=== PATIENT | male | born 1970 | race Caucasian/White ===

== ENCOUNTER 2016-09-27 08:43 | Inpatient (IN) | payer OTHER ==
[2016-09-27] MEDS ORDERED: SENNOSIDES 1 TAB PO PRN (14:31)
--- NOTE | 2016-09-27 15:46 | BCON ---
[f rep st] BEHAVIORAL HEALTH CONSULTATION INTERNAL MEDICINE CONSULTATION DATE OF CONSULTATION: 09/27/2016 REFERRING PHYSICIAN: Fritz Quinonez MD REASON FOR CONSULTATION: Medical clearance for inpatient behavioral health stay. HISTORY OF PRESENT ILLNESS: The patient is a poor historian but from reviewing his chart and talking with staff he was referred for inpatient electroconvulsive therapy. He had been getting outpatient elective convulsive therapy and apparently had had a worsening of his depression so has come inpatient for closer supervision while he continues electroconvulsive therapy. Currently, he complains of back pain. He has chronic back pain due to a weight lifting accident. He has had back surgery but continues to have pain. He is currently without other acute complaints. PAST MEDICAL HISTORY: 1. Back pain. 2. Obstructive sleep apnea. 3. History of traumatic brain injury. 4. Hypothyroidism. 5. Headaches. PAST SURGICAL HISTORY: Lumbar fusion approximately 10-11 years ago. MEDICATIONS: Prior to admission. 1. Quetiapine 600 mg p.o. at bedtime. 2. Prazosin 10 mg p.o. at bedtime. 3. Paroxetine 40 mg p.o. daily. 4. [place]-3 fatty acids 2000 mg p.o. twice daily. 5. Multivitamin 1 each p.o. daily. 6. Lurasidone 80 mg p.o. at bedtime. 7. Levothyroxine 112 mcg daily except not on Sundays. ALLERGIES: There are no known drug allergies. SOCIAL HISTORY: He is . He lives with his . 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 He is currently on disability. He has no children. He is a nonsmoker. He has a history of alcohol abuse but has been sober for 20 years other than recent binge drinking episodes prior to his hospitalization last March. FAMILY HISTORY: Noncontributory. REVIEW OF SYSTEMS: He reports his back pain is 5/10. He says his goal for pain control would be 2 to 3 over 10. He reports he was taking an opiate medication, but he cannot recall the name of it. He reports memory loss due to electroconvulsive therapy. He denies fevers, chills, cough, dyspnea, nausea, vomiting, constipation or diarrhea. He reports he has a poor diet and is not sure whether he has gained weight, but chart review shows a 6 kg weight gain since March, and he has some constipation related to his pain medications, and otherwise a 10-point review of systems is negative. PHYSICAL EXAM: VITAL SIGNS: Blood pressure is 137/96, heart rate is 103, respiratory rate is 14, oxygen saturation is 97% on room air. His weight is 103.4 kg for a body mass index of 29. GENERAL: This is an overweight man, cooperative, well groomed and in no acute distress. HEENT. Extraocular movements are intact. Pupils are equal, round, and reactive to light. Mucous membranes are moist. Dentition is in good condition. NECK: Supple. HEART: There is a regular rate and rhythm. He is tachycardic. There are no murmurs, rubs or gallops. LUNGS: Clear to auscultation bilaterally. ABDOMEN: Soft, nontender, nondistended with normoactive bowel sounds. EXTREMITIES: There is no cyanosis, clubbing, or edema. NEUROLOGIC: He is alert and oriented x3. He has slow processing and recent memory loss and is a poor historian. Cranial nerves 2-12 are grossly intact. There is no focal weakness. Sensation is intact to light touch, and gait is within normal limits. LABORATORY STUDIES: There are no laboratory studies available in the chart currently, but on chart review, a lipid panel was drawn on 04/25/2016 which showed dyslipidemia with cholesterol of 234, triglycerides also elevated at 179 , LDL was high at 152, HDL was normal at 47. His TSH was normal on 04/22/2016. His vitamin D level was low at 22.2 on 04/22/2016, and otherwise, renal function, liver function and electrolytes were within normal limits. ASSESSMENT/RECOMMENDATIONS: 1. Mental health issues. Pending further evaluation and management per Psychiatry and the mental health team. 2. Chronic back pain. He reports he was treated with an opiate. I have ordered hydrocodone/acetaminophen 5/325, 1-2 tablets q.4 hours p.r.n. Advise also ordering ibuprofen and Tylenol in an attempt to spare opiates. 3. Dyslipidemia. Possibly complicated by weight gain if the weights in the chart are accurate. Consider avoiding psychiatric medications which could exacerbate weight gain; however, psychosocial stabilization is priority at this time. Advised exercise. He reports that he has been unable to exercise due to his back pain and recently sold his weights, but he was advised that there are other activities in which he could engage which would benefit his lipid panel and his weight. 4. Vitamin D deficiency. I have ordered cholecalciferol 2000 units daily. 5. Hypothyroidism has been well controlled, and there is no indication at present to repeat a TSH or consider changing dose. 6. Obstructive sleep apnea. On his prior to admission, it was noted that he had recently been tested and been prescribed CPAP. It would be in his best interest to bring the CPAP machine to the unit and use it at night. 7. Elevated blood pressure on a single reading. Advise monitoring blood pressure. If it is persistently elevated, he would benefit from antihypertensive medications. 8. Tachycardia of unclear etiology. Advise monitoring. If he is persistently tachycardic, advise an EKG, and advise attention also to hydration state. It could be that he has some dehydration. Additionally, anxiety could be driving an elevated blood pressure and heart rate. I see no contraindications to the patient's continued stay on the inpatient behavioral health unit, or to any psychiatric medications or procedures, assuming that he does not continue to have an abnormally fast heart rate in the preparation for electroconvulsive therapy. Thank you very much for including me in the care of this patient and please do not hesitate to contact me or the hospitalist service should there be need for further medical evaluation. /[id number]/MODL MTDD
[2016-09-27] MEDS ORDERED: ACETAMINOPHEN 325 MG TAB PO PRN (17:11)
[2016-09-27] MEDS ORDERED: MAGNESIUM HYDROXIDE 30 ML UDCUP PO PRN (17:11)
[2016-09-27] MEDS ORDERED: MAG HYDROX/AL HYDROX/SIMETH 30 ML UDCUP PO PRN (17:11)
[2016-09-27] MEDS ORDERED: DIAZEPAM 5 MG TAB PO PRN (17:17)
[2016-09-27] MEDS: QUEtiapine FUMARATE 200 MG TAB PO SCH (19:20)
[2016-09-27] MEDS: PRAZOSIN HCL 5 MG CAP PO SCH (19:21)
[2016-09-27] MEDS: OXYCODONE/APAP 5/325 TAB PO PRN (19:24)
[2016-09-27] MEDS ORDERED: LURASIDONE HCL 80 MG TAB PO SCH (21:00)
[2016-09-28] MEDS ORDERED: LEVOTHYROXINE 112 MCG TAB PO SCH (06:00)
[2016-09-28] MEDS: OMEGA-3 FATTY ACIDS 1,000 MG CAP PO SCH (10:26)
[2016-09-28] MEDS: CHOLECALCIFEROL VIT D3 2,000 UNITS TAB/CAP PO SCH (10:29)
[2016-09-28] MEDS: MULTIVITAMINS 1 EACH TAB PO SCH (10:29)
[2016-09-28] MEDS: PARoxetine HCL 20 MG TAB PO SCH (10:29)
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
[2016-09-28] MEDS: QUEtiapine FUMARATE 200 MG TAB PO SCH (20:38)
[2016-09-28] MEDS: LURASIDONE HCL 80 MG TAB PO SCH (20:39)
[2016-09-28] MEDS: PRAZOSIN HCL 5 MG CAP PO SCH (20:39)
[2016-09-28] MEDS: LURASIDONE HCL 20 MG TAB PO SCH (20:39)
[2016-09-29] MEDS ORDERED: ONDANSETRON DISINTEGRATING 4 MG TAB PO ONE (05:00)
[2016-09-29] MEDS ORDERED: CITRIC ACID/SODIUM CITRATE 30 ML UDCUP PO ONE (05:00)
[2016-09-29] MEDS ORDERED: NS 1,000 ML IV ONE (05:00)
[2016-09-29] MEDS ORDERED: LIDOCAINE 2% 5 ML SDV ID ONE (05:00)
[2016-09-29] MEDS: CHOLECALCIFEROL VIT D3 2,000 UNITS TAB/CAP PO SCH (09:45)
[2016-09-29] MEDS: PARoxetine HCL 20 MG TAB PO SCH (09:45)
[2016-09-29] MEDS: MULTIVITAMINS 1 EACH TAB PO SCH (09:45)
[2016-09-29] MEDS: LEVOTHYROXINE 112 MCG TAB PO SCH (09:45)
[2016-09-29] MEDS: OMEGA-3 FATTY ACIDS 1,000 MG CAP PO SCH (09:45)
[2016-09-29 11:29] VITALS: TEMP 97.6
[2016-09-29] MEDS: HYDROCODONE/APAP 5/325 TAB PO PRN ×2 (14:57→20:05)
[2016-09-29] MEDS: OXYCODONE/APAP 5/325 TAB PO PRN (14:57)
[2016-09-29] MEDS: LURASIDONE HCL 20 MG TAB PO SCH (19:57)
[2016-09-29] MEDS: PRAZOSIN HCL 5 MG CAP PO SCH (19:57)
[2016-09-29] MEDS: QUEtiapine FUMARATE 200 MG TAB PO SCH (19:57)
[2016-09-29] MEDS: LURASIDONE HCL 80 MG TAB PO SCH (19:58)
[2016-09-30] MEDS: CHOLECALCIFEROL VIT D3 2,000 UNITS TAB/CAP PO SCH (08:35)
[2016-09-30] MEDS: OMEGA-3 FATTY ACIDS 1,000 MG CAP PO SCH (08:35)
[2016-09-30] MEDS: PARoxetine HCL 20 MG TAB PO SCH (08:35)
[2016-09-30] MEDS: MULTIVITAMINS 1 EACH TAB PO SCH (08:35)
[2016-09-30] MEDS: HYDROCODONE/APAP 5/325 TAB PO PRN ×2 (09:09→19:45)
[2016-09-30] MEDS: LORazepam 0.5 MG TAB PO PRN ×2 (09:09→16:21)
[2016-09-30] MEDS: LEVOTHYROXINE 112 MCG TAB PO SCH (10:00)
[2016-09-30] MEDS: OXYCODONE/APAP 5/325 TAB PO PRN (16:22)
--- NOTE | 2016-09-30 19:38 | SOAPPROG ---
SOAP Progress Note Assessment/Plan: Assessment: 46yo with BMD and treatment resistant depr also PTSD, chronic back pain, hx of TBI, Hypothyroidism, and ASTRID on CPAP, receiving ECT as outpt. Admitted s/p EtOH binge after prolonged sobriety with resulting +SI and ?OD 09/30/16 11:47 per staff, has been increasingly visible in milieu. states he went to one group this AM. feels sleepy, and was awakened at 2pm from deep sleep in darkened room. reports compliant with CPAP at night. 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 pt reports no recollection of SI and no recall whether attempted to harm himself in the context of acute intoxication. Has been sober x 5-10 yrs he reports, except for 2-3 acute binge drinking episodes. 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 If could change anything? "I would like to get back to work" cooperative, nml speech vol/rate but decr spontaneity, flat/blunted affect, mood depressed, thoughts without delusions or psychosis, some content poverty and vague, denied SI Plan: cont current meds no s/e to incr Latuda from 80mg to 100mg hs, but reports also noting no benefits so far Objective: Vital Signs Temp Pulse Resp BP Pulse Ox 36.4 C 89 15 90/50 L 91 L 09/29/16 09:45 09/29/16 09:45 09/29/16 09:45 09/29/16 09:45 09/29/16 09:45 Medications Generic Name Dose Route Start Last Admin Trade Name Freq PRN Reason Stop Dose Admin Cholecalciferol 2,000 units 09/28/16 09:00 10/01/16 08:29 Vitamin D PO 03/27/17 08:59 2,000 units DAILY VIDHYA Quetiapine Fumarate 600 mg 09/27/16 21:00 09/30/16 20:29 Seroquel PO 03/26/17 20:59 600 mg HS VIDHYA Diazepam 5 - 10 mg 09/27/16 17:17 Valium PO 03/26/17 17:16 HS PRN Spasms Levothyroxine Sodium 112 mcg 09/29/16 10:00 09/30/16 10:00 Synthroid PO 03/28/17 09:59 112 mcg DAILY@1000 VIDHYA Hydrocodone Bitart/Acetaminophen 1 - 2 tab 09/27/16 14:30 10/01/16 08:30 Bradshaw 5/325 PO 10/07/16 14:29 2 tab Q4HRS PRN Pain, Moderate Able to Take PO Lorazepam 0.5 - 1 mg 09/27/16 17:11 09/30/16 16:21 Ativan PO 03/26/17 17:10 1 mg Q6HRS PRN Anxiety, Able to Take PO Lurasidone HCl 80 mg 09/28/16 17:59 09/30/16 20:29 Latuda PO 03/26/17 20:59 80 mg HS VIDHYA Lurasidone HCl 20 mg 09/28/16 21:00 09/30/16 20:29 Latuda PO 03/27/17 20:59 20 mg HS VIDHYA Multivitamins 1 each 09/28/16 09:00 10/01/16 08:29 Tab-A-Andrew PO 03/27/17 08:59 1 each DAILY VIDHYA Czlrs-2-Cdap Ethyl Esters 1,000 mg 09/28/16 09:00 10/01/16 08:28 Fish Oil PO 03/27/17 08:59 1,000 mg DAILY VIDHYA Oxycodone/Acetaminophen 1 tab 09/27/16 17:17 09/30/16 16:22 Percocet 5/325 PO 10/07/16 17:16 1 tab Q8 PRN Pain, Severe Able to Take PO Paroxetine HCl 40 mg 09/28/16 09:00 10/01/16 08:28 Paxil PO 03/27/17 08:59 40 mg DAILY VIDHYA Prazosin HCl 10 mg 09/27/16 21:00 09/30/16 20:29 Minipress PO 03/26/17 20:59 10 mg HS VIDHYA - Time Spent With Patient Time Spent With Patient: 35min - Pending Discharge Pending Discharge Within 24 Hours: No Pending Discharge Within 48 Hours: No ICD10 Worksheet Patient Problems: Problems Problem Status Onset Bipolar 1 disorder, depressed, severe Acute
[2016-09-30] MEDS: PRAZOSIN HCL 5 MG CAP PO SCH (20:29)
[2016-09-30] MEDS: LURASIDONE HCL 20 MG TAB PO SCH (20:29)
[2016-09-30] MEDS: LURASIDONE HCL 80 MG TAB PO SCH (20:29)
[2016-09-30] MEDS: QUEtiapine FUMARATE 200 MG TAB PO SCH (20:29)
[2016-10-01] MEDS: PARoxetine HCL 20 MG TAB PO SCH (08:28)
[2016-10-01] MEDS: OMEGA-3 FATTY ACIDS 1,000 MG CAP PO SCH (08:28)
[2016-10-01] MEDS: MULTIVITAMINS 1 EACH TAB PO SCH (08:29)
[2016-10-01] MEDS: CHOLECALCIFEROL VIT D3 2,000 UNITS TAB/CAP PO SCH (08:29)
[2016-10-01] MEDS: HYDROCODONE/APAP 5/325 TAB PO PRN (08:30)
[2016-10-01] MEDS: LEVOTHYROXINE 112 MCG TAB PO SCH (10:00)
[2016-10-01] MEDS: OXYCODONE/APAP 5/325 TAB PO PRN (18:35)
[2016-10-01] MEDS: LURASIDONE HCL 80 MG TAB PO SCH (20:17)
[2016-10-01] MEDS: PRAZOSIN HCL 5 MG CAP PO SCH (20:17)
[2016-10-01] MEDS: QUEtiapine FUMARATE 200 MG TAB PO SCH (20:17)
[2016-10-01] MEDS: LURASIDONE HCL 20 MG TAB PO SCH (20:17)
--- NOTE | 2016-10-02 02:32 | SOAPPROG ---
SOAP Progress Note Assessment/Plan: Assessment: 46yo with BMD and treatment resistant depr also PTSD, chronic back pain, hx of TBI, Hypothyroidism, and ASTRID on CPAP, receiving ECT as outpt. Admitted s/p EtOH binge after prolonged sobriety with resulting +SI and ?OD 09/30/16 11:47 per staff, has been increasingly visible in milieu. states he went to one group this AM. feels sleepy, and was awakened at 2pm from deep sleep in darkened room. reports compliant with CPAP at night. 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 pt reports no recollection of SI and no recall whether attempted to harm himself in the context of acute intoxication. Has been sober x 5-10 yrs he reports, except for 2-3 acute binge drinking episodes. 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 If could change anything? "I would like to get back to work" cooperative, nml speech vol/rate but decr spontaneity, flat/blunted affect, mood depressed, thoughts without delusions or psychosis, some content poverty and vague, denied SI Plan: cont current meds no s/e to incr Latuda from 80mg to 100mg hs, but reports also noting no benefits so far 10/01/16 14:11 slept 9hr. staff report pt seems more depressed. noted VS with pOx 91% this AM took 2 [place] this AM for pain, and 1 Percoset at 4pm last pm. per MD admit note, gained 6kg since 03/2016. MSE: noted reading from Bible in bed, cooperative,casually dressed, balding with unshaved graying cohen, nml speech rate/vol which seems a bit more spontaneous today, mood "doing alright", affect continues very restricted/ flattened, no evid for thought d/o, denied psychotic sxs, denied SI. "I wore my CPAP last night". c/o chronic cognitive difficulties since TBI. PLAN -Reports no side effects from incr Latuda. but also no benefit noted yet. cont to monitor -Reviewed other meds briefly, thinks on Paxil x 10yrs. Taking in AM. Since Paxil is generally sedating, pt agreed to try change to HS. Also this SSRI could have adverse effects on cognition w/its anticholinergic effects, could at some point consider slow taper and replace. ?Lamictal -hypoxia not helpful for depr/cognition, cont CPAP -otherwise cont w/current mgmt Objective: Vital Signs Temp Pulse Resp BP Pulse Ox 36.4 C 89 15 90/50 L 91 L 09/29/16 09:45 09/29/16 09:45 09/29/16 09:45 09/29/16 09:45 09/29/16 09:45 - Time Spent With Patient Time Spent With Patient: 25min - Pending Discharge Pending Discharge Within 24 Hours: No Pending Discharge Within 48 Hours: No ICD10 Worksheet Patient Problems: Problems Problem Status Onset Bipolar 1 disorder, depressed, severe Acute
[2016-10-02] MEDS ORDERED: ONDANSETRON DISINTEGRATING 4 MG TAB PO ONE (05:00)
[2016-10-02] MEDS ORDERED: CITRIC ACID/SODIUM CITRATE 30 ML UDCUP PO ONE (05:00)
[2016-10-02] MEDS ORDERED: LIDOCAINE 2% 5 ML SDV ID ONE (05:00)
[2016-10-02] MEDS ORDERED: NS 1,000 ML IV ONE (05:00)
[2016-10-02] MEDS: LEVOTHYROXINE 112 MCG TAB PO SCH (09:41)
[2016-10-02] MEDS: CHOLECALCIFEROL VIT D3 2,000 UNITS TAB/CAP PO SCH (09:41)
[2016-10-02] MEDS: MULTIVITAMINS 1 EACH TAB PO SCH (09:41)
[2016-10-02] MEDS: OMEGA-3 FATTY ACIDS 1,000 MG CAP PO SCH (09:41)
[2016-10-02 11:13] VITALS: BP 119/67; PULSE 83; RESP 14; O2SAT 88
[2016-10-02] MEDS ORDERED: PARoxetine HCL 20 MG TAB PO SCH (21:00)
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
== END 2016-10-02 16:10 | disposition home or self-care (01) | DRG 885 ==
LOC: BBEH 12:35
PROVIDERS: ADMIT Psychiatry & Neurology Psychiatry; ATTEND Psychiatry & Neurology Psychiatry
PROC: GZB2ZZZ Electroconvulsive Therapy, Bilateral-Single Seizure (ICD-10-PCS; principal; 2016-09-29)
DX: F31.4 Bipolar disorder, current episode depressed, severe, without psychotic features (principal); F43.12 Post-traumatic stress disorder, chronic; F10.21 Alcohol dependence, in remission; M54.5 Low back pain; E78.5 Hyperlipidemia, unspecified; E03.9 Hypothyroidism, unspecified; E55.9 Vitamin D deficiency, unspecified; G47.33 Obstructive sleep apnea (adult) (pediatric); Z62.819 Personal history of unspecified abuse in childhood; Z87.820 Personal history of traumatic brain injury

== ENCOUNTER 2017-11-19 13:21 | Inpatient (IN) | payer OTHER ==
--- NOTE | 2017-11-19 15:13 | CPEKG ---
Heart Rate: 101 RR Interval: 594 P-R Interval: 192 QRSD Interval: 92 QT Interval: 336 QTC Interval: 436 P [place]: 36 QRS [place]: -74 T Wave [place]: 29 EKG Severity - ABNORMAL ECG - EKG Impression: SINUS TACHYCARDIA EKG Impression: LEFT ANTERIOR FASCICULAR BLOCK Electronically Signed By: Christine Hernandez 20-Nov-2017 00:43:48
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
[2017-11-19 15:30] LABS: PLATELET COUNT 231 10^3/uL (150-400)
[2017-11-19] MEDS ORDERED: NS 1,000 ML IV ONE (15:39)
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
--- NOTE | 2017-11-19 20:04 | ASMTTCLDSP ---
TLC Discharge Disposition Disposition: Answers: Admit Discharge Concerns/Recommendations: Notes: In consultation with [facility] ED physician, Christine Hernandez MD, and on-call psychiatrist, Fritz Quinonez MD, both concurred that pt appears to meet 27-65 criteria requiring psychiatric hospitalization as Pt appears to be an imminent risk of harm to self/others due to a mental illness condition. Pt was given the 3N prohibited belongings list while in the ED. For inpatient Fritz Quinonez MD admission, the following psychiatrist agreed to accept patient for admission to [facility] ([facility]): Date and time M1 hold 11/19/2017 08:00 PM vacated (time format is hh:mm): Hold initiated by: Answers: Other Notes: Pt is Voluntary Date Signed: 11/19/2017 08:03 PM Electronically Signed By:Ashlee Sweeney
[2017-11-19] MEDS ORDERED: MAG HYDROX/AL HYDROX/SIMETH 30 ML UDCUP PO PRN (21:51)
[2017-11-19] MEDS ORDERED: MAGNESIUM HYDROXIDE 30 ML UDCUP PO PRN (21:51)
[2017-11-19] MEDS: ACETAMINOPHEN 325 MG TAB PO PRN (22:08)
[2017-11-19] MEDS: QUEtiapine FUMARATE 200 MG TAB PO SCH (22:24)
[2017-11-20] MEDS: PARoxetine HCL 20 MG TAB PO SCH (09:22)
[2017-11-20] MEDS: SENNOSIDES 1 TAB PO SCH ×2 (09:22→21:03)
[2017-11-20] MEDS: OMEGA-3 FATTY ACIDS 1,000 MG CAP PO SCH ×2 (09:22→21:03)
--- NOTE | 2017-11-20 11:20 | ASMTBHMTP ---
Master Treatment Plan Master Treatment Plan Answers: Depressed Mood with for: Suicidal Ideation Date: 11/20/2017 Diagnosis on Admission: Major Depressive Disorder Expected length of stay: 3-5 days Reason for admission: Notes: Client is a 47 yoa male brought to ED by at the referral of his psychiatrist for inpatient admission due to decompensation. Pt's states "he has had difficulty getting back on track with his medication: and attributes many of his recent symptoms to starting and then increasing his Depakote 2 weeks ago. " Pt stated he has recently stopped taking the Depakote. Patient's stated presenting problems: Notes: because I am depressed Patient's goals for treatment: Notes: to fix things, make my life better Patient's strengths: Notes: easy to get along with Identify supports outside of hospital: Notes: and her parents. Discharge criteria: Notes: Suicidal Ideation will resolve and patient will have a plan to safely manage recurrent suicidal ideation. Initial disposition plan/considerations: Notes: return home Master Treatment Plan Required Signatures Psychiatrist signature: Answers: Fritz Quinonez MD: RN on-shift signature: Answers: RN: Patient signature: Answers: Patient: Date Signed: 11/20/2017 11:19 AM Electronically Signed By:Cuate Ocampo
[2017-11-20] MEDS: LORazepam 0.5 MG TAB PO PRN ×2 (12:51→18:38)
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
--- NOTE | 2017-11-20 18:38 | PDMN ---
Medical Necessity Medical necessity: Pt meets INPT criteria per MD and [facility] [id number] (Bipolar I disorder, most recent episode depressed, severe, with psychosis; PTSD, alcohol use disorder, cognitive disruption; ECT planned).
--- NOTE | 2017-11-20 18:56 | PDHOSCONS ---
History and Physical - Chief Complaint Acute cognitive impairment - History of Present Illness Primary care psychiatrist: Dr. Fritz Quinonez HPI: 47-year-old male presenting with acute cognitive impairment characterized as inability to put together words and feelings in a meaningful way and express himself. He reports associated suicidal ideation, paranoia, delusions, feelings of mistrust towards others, including his . The patient denies any active plan but he is not very forthcoming with information. The onset of symptoms approximately 2 weeks ago and duration has been persistent worsening thereafter. The patient voluntarily presented on 11/19 with his for inpatient Behavioral Health admission. History Information - Allergies/Home Medication List Allergies/Adverse Reactions: disulfiram Allergy (Unknown, Unverified 11/19/17 21:58) divalproex sodium [From Depakote] Allergy (Unknown, Unverified 11/19/17 21:52) lamotrigine [From Lamictal] Allergy (Unknown, Unverified 11/19/17 21:58) lurasidone [From Latuda] Allergy (Unknown, Unverified 11/19/17 21:58) sertraline [From Zoloft] Allergy (Unknown, Unverified 11/19/17 21:58) Other-Enter Comments valbenazine [From Ingrezza] Allergy (Verified 07/06/17 14:37) Anxiety Home Medications: PRAZOSIN HCL 10 mg PO HS 04/21/16 [Last Taken 09/24/16] [place]-3S/Dha/Epa/Fish Oil [Fish Oil 1,200 mg Softgel] 1 cap PO BID 06/01/17 [ Last Taken Unknown] Sennosides [Senokot] 1 tab PO BID 06/01/17 [Last Taken Unknown] Multivitamins [Multivitamin (*)] 2 each PO DAILY 06/25/17 [Last Taken Unknown] PARoxetine HCL [Paxil 20mg (*)] 40 mg PO DAILY 06/25/17 [Last Taken Unknown] Quetiapine Fumarate [Seroquel] 800 mg PO HS 06/25/17 [Last Taken Unknown] Cholecalciferol Vit D3 [Vitamin D3 (*)] 2,000 units PO HS 07/09/17 [Last Taken Unknown] Herbals/Supplements -Info Only 1 ea PO DAILY 11/19/17 [Last Taken Unknown] Levothyroxine [Synthroid 112 mcg (*)] 112 mcg PO HS 11/19/17 [Last Taken Unknown ] I have personally reviewed and updated: family history, medical history, social history, surgical history - Past Medical History Additional medical history: Bipolar disease type 1 with ECT for depressive episodes. PTSD. Traumatic brain injury with chronic headaches. Hypothyroidism. Obstructive sleep apnea with CPAP. Chronic lower back pain - Surgical History Additional surgical history: Lumbar fusion - Family History Additional family history: No family history of coronary artery disease or recent sick contacts - Social History Smoking Status: Never smoked Alcohol Use: Other (Occasional binges and recent relapse, most recent alcohol consumption was 11/16 3:00 a.m.) Drug Use: None Additional social history: Currently on disability Review of Systems Review of Systems: ROS: 10pt was reviewed & negative except for what was stated in HPI & below Neurological: Reports: other (Cognitive impairment, delusions, paranoia, suicidal ideation) Physical Exam Physical Exam: Temp Pulse Resp BP Pulse Ox 36.4 C 89 14 121/82 H 98 11/20/17 06:00 11/20/17 06:00 11/20/17 06:00 11/20/17 06:00 11/20/17 06:00 Constitutional: no apparent distress, appears nourished, not in pain Eyes: PERRL, anicteric sclera, EOMI Ears, Nose, Mouth, Throat: moist mucous membranes, hearing normal, ears appear normal, no oral mucosal ulcers Cardiovascular: regular rate and rhythym, no murmur, rub, or gallop, No edema Respiratory: no respiratory distress, no rales or rhonchi, clear to auscultation Gastrointestinal: normoactive bowel sounds, soft, non-tender abdomen, no palpable masses Neurologic: AAOx3, No weakness (Motor strength 5/5 bilateral upper and lower extremities), No facial droop Psychiatric: not anxious, flat affect, poor memory, other (The patient is very withdrawn appearing, he answers in 1-2 word responses, he is unable to provide much history), No agitated Lab Data & Imaging Review 11/19/17 15:11 11/19/17 15:11 WBC 7.09 10^3/uL (3.80-9.50) 11/19/17 15:11 RBC 5.03 10^6/uL (4.40-6.38) 11/19/17 15:11 Hgb 16.3 g/dL (13.7-17.5) 11/19/17 15:11 Hct 45.3 % (40.0-51.0) 11/19/17 15:11 MCV 90.1 fL (81.5-99.8) 11/19/17 15:11 MCH 32.4 pg (27.9-34.1) 11/19/17 15:11 MCHC 36.0 g/dL (32.4-36.7) 11/19/17 15:11 RDW 13.9 % (11.5-15.2) 11/19/17 15:11 Plt Count 231 10^3/uL (150-400) 11/19/17 15:11 MPV 9.7 fL (8.7-11.7) 11/19/17 15:11 Neut % (Auto) 57.3 % (39.3-74.2) 11/19/17 15:11 Lymph % (Auto) 22.4 % (15.0-45.0) 11/19/17 15:11 [place] % (Auto) 16.2 % (4.5-13.0) H 11/19/17 15:11 Eos % (Auto) 2.1 % (0.6-7.6) 11/19/17 15:11 Baso % (Auto) 0.7 % (0.3-1.7) 11/19/17 15:11 Nucleat RBC Rel Count 0.0 % (0.0-0.2) 11/19/17 15:11 Absolute Neuts (auto) 4.06 10^3/uL (1.70-6.50) 11/19/17 15:11 Absolute Lymphs (auto) 1.59 10^3/uL (1.00-3.00) 11/19/17 15:11 Absolute Monos (auto) 1.15 10^3/uL (0.30-0.80) H 11/19/17 15:11 Absolute Eos (auto) 0.15 10^3/uL (0.03-0.40) 11/19/17 15:11 Absolute Basos (auto) 0.05 10^3/uL (0.02-0.10) 11/19/17 15:11 Absolute Nucleated RBC 0.00 10^3/uL (0-0.01) 11/19/17 15:11 Immature Gran % 1.3 % (0.0-1.1) H 11/19/17 15:11 Immature Gran # 0.09 10^3/uL (0.00-0.10) 11/19/17 15:11 Sodium 139 mEq/L (135-145) 11/19/17 15:11 Potassium 4.1 mEq/L (3.3-5.0) 11/19/17 15:11 Chloride 107 mEq/L (97-110) 11/19/17 15:11 Carbon Dioxide 23 mEq/l (22-31) 11/19/17 15:11 Anion Gap 9 mEq/L (8-16) 11/19/17 15:11 BUN 19 mg/dL (7-23) 11/19/17 15:11 Creatinine 0.9 mg/dL (0.7-1.3) 11/19/17 15:11 Estimated GFR > 60 11/19/17 15:11 Glucose 110 mg/dL (70-100) H 11/19/17 15:11 Calcium 9.1 mg/dL (8.5-10.4) 11/19/17 15:11 Total Bilirubin 0.4 mg/dL (0.1-1.4) 11/19/17 15:11 Conjugated Bilirubin 0.3 mg/dL (0.0-0.5) 11/19/17 15:11 Unconjugated Bilirubin 0.1 mg/dL (0.0-1.1) 11/19/17 15:11 AST 28 IU/L (17-59) 11/19/17 15:11 ALT 25 IU/L (21-72) 11/19/17 15:11 Alkaline Phosphatase 59 IU/L (38-126) 11/19/17 15:11 Total Protein 6.6 g/dL (6.3-8.2) 11/19/17 15:11 Albumin 3.8 g/dL (3.5-5.0) 11/19/17 15:11 Lipase 117 IU/L (23-300) 11/19/17 15:11 TSH 5.360 uIU/mL (0.465-4.680) H 11/19/17 15:11 Urine Opiates Screen NEGATIVE ng/mL (NEGATIVE) 11/19/17 13:06 Urine Barbiturates NEGATIVE ng/mL (NEGATIVE) 11/19/17 13:06 Valproic Acid 14.3 mcg/mL (50.0-150.0) L 11/19/17 15:11 Ur Phencyclidine Scrn NEGATIVE ng/mL (NEGATIVE) 11/19/17 13:06 Ur Amphetamines Screen NEGATIVE ng/mL (NEGATIVE) 11/19/17 13:06 U Benzodiazepines Scrn NEGATIVE ng/mL (NEGATIVE) 11/19/17 13:06 Urine Cocaine Screen NEGATIVE ng/mL (NEGATIVE) 11/19/17 13:06 U Marijuana (THC) Screen NEGATIVE ng/mL (NEGATIVE) 11/19/17 13:06 Ethyl Alcohol < 10 mg/dL (0-10) 11/19/17 15:11 Visualized and Interpreted EKG results: Yes EKG Interpretation: Positive for: other (Sinus tachycardia with left anterior fascicular block) Assessment & Plan Assessment: 47-year-old male presenting with acute depressive episode in the setting of bipolar disease type 1 Plan: 1. Depressive episode. Acute, resulting in significant cognitive impairment, patient is known in the outpatient setting by Dr. Fritz Quinonez, and he is planning on performing ECT -most recent ECT performed 11/02/2017 as an outpatient -defer additional medication management to the primary mental health provider 2. Hypothyroidism. Reviewed outside records including 09/27/2016 consultation H& P by Dr. Jose Ly, at that time he reports that the patient was on 112 mcg of Synthroid, patient had been stable on this medication and TSH level was not checked at that time -most recent TSH 5.4 which could represent subtherapeutic supplementation -I attempted to elicit from the patient his exact timing of when he takes his medication at home as well as get a sense of whether not he has been adherent, but the patient is a very poor historian and is unable to provide me with any of this information -I recommend that we initiate the patient's home dosage of Synthroid 112 mcg daily, administer it on an empty stomach around 6:00 a.m., and then I recommend repeating his TSH level in approximately 2-4 weeks to gauge whether there is improvement with improved adherence to the medication as well as proper scheduling 3. Obstructive sleep apnea. Patient reports that he currently has a CPAP device , continue home device 4. Chronic lower back pain. Patient reports that he deals with this and does not require opiate medications, hold on any opiate medications at this time and treat preferentially with ibuprofen and Tylenol Hospital Medicine service will sign off on this patient, please contact [phone] if additional issues arise.
[2017-11-20] MEDS ORDERED: IBUPROFEN 200 MG TAB PO PRN (19:00)
[2017-11-20] MEDS: LEVOTHYROXINE 112 MCG TAB PO SCH (20:26)
[2017-11-20] MEDS: CHOLECALCIFEROL VIT D3 1,000 UNITS TAB PO SCH (21:03)
[2017-11-20] MEDS: PRAZOSIN HCL 5 MG CAP PO SCH (21:03)
[2017-11-20] MEDS: QUEtiapine FUMARATE 200 MG TAB PO SCH (21:03)
[2017-11-21] MEDS ORDERED: ONDANSETRON DISINTEGRATING 4 MG TAB PO PRN (08:00)
[2017-11-21] MEDS ORDERED: NS 1,000 ML IV PRN (08:00)
[2017-11-21] MEDS ORDERED: CITRIC ACID/SODIUM CITRATE 30 ML UDCUP PO PRN (08:00)
[2017-11-21] MEDS: PARoxetine HCL 20 MG TAB PO SCH ×2 (09:14→14:43)
[2017-11-21] MEDS: OMEGA-3 FATTY ACIDS 1,000 MG CAP PO SCH ×3 (09:14→20:34)
[2017-11-21] MEDS ORDERED: CITRIC ACID/SODIUM CITRATE 30 ML UDCUP ONE (11:02)
[2017-11-21] MEDS ORDERED: ONDANSETRON DISINTEGRATING 4 MG TAB ONE (11:02)
--- NOTE | 2017-11-21 12:52 | ASMTCMCOM ---
CM Note CM Note Notes: Ct. was waiting for ECT session when CC checked in with him. Ct. was neatly dressed in street clothes. He reported that he is having "a bad day today, really depressed". Ct. reported on/off SI and racing thoughts. Ct. affect was very flat and he experienced notable tremors . Date Signed: 11/21/2017 12:51 PM Electronically Signed By:Sarah Smith
--- NOTE | 2017-11-21 13:14 | PDECTPN ---
ECT Progress Note Patient Problems: Problems Problem Status Onset Code Bipolar 1 disorder, depressed, severe Acute F31.4 Date: 11/21/17 ECT provider: Wilmer Quinonez Anesthesia: Aram Vaughan Stimulus dose (%): 100 Pulse width: 0.5 ECT EMG (sec): 32 ECT EEG (sec): 40 ECT treatment type: bilateral QIDS-SR Total Score: 26 QIDS-SR Question #12 Score: 2 MMSE Total Score (Max = 21): 20 Next ECT date: 11/23/17 Next ECT time: 13:15 O/P psychiatrist follow up with : Hector O/P psychiatrist follow up: direct communication Home medications: Medication Instructions Recorded PRAZOSIN HCL 10 mg PO HS 04/21/16 [place]-3S/Dha/Epa/Fish Oil [Fish 1 cap PO BID 06/01/17 Oil 1,200 mg Softgel] Sennosides [Senokot] 1 tab PO BID 06/01/17 Multivitamins [Multivitamin (*)] 2 each PO DAILY 06/25/17 PARoxetine HCL [Paxil 20mg (*)] 40 mg PO DAILY 06/25/17 Quetiapine Fumarate [Seroquel] 800 mg PO HS 06/25/17 Cholecalciferol Vit D3 [Vitamin D3 2,000 units PO HS 07/09/17 (*)] Herbals/Supplements -Info Only 1 ea PO DAILY 11/19/17 Levothyroxine [Synthroid 112 mcg 112 mcg PO HS 11/19/17 (*)] Medication review: completed Current treatment plan: acute phase, increased frequency cycle d/t exacerbation of symptoms Treatment plan frequency: 3 times per week ECT narrative: Pt seen in ongoing maintenance ECT. He reports feeling "really bad" today. Mood remains low and he c/o "racing thoughts." States he didn't sleep well last night. Affect is constricted, anxious. Mood is "really bad." TP linear. TC reveals no psychosis. Continues to endorse SI. Underwent bilateral ECT without complication. Will monitor post-treatment mood and cognition with attention toward subjective depression and racing thoughts.
[2017-11-21] MEDS ORDERED: ACETAMINOPHEN 325 MG TAB ONE (13:44)
--- NOTE | 2017-11-21 13:45 | POSTANESTH ---
Post Anesthetic Evaluation Cardiovascular Status: Normal, Stable Respiratory Status: Normal, Stable Level of Consciousness/Mental Status: Can Participate in Eval, Alert and Oriented Pain Control: Adequate, Prn Tx Ordered Nausea/Vomiting Control: Adequate, Prn Tx Ordered Complications Possibly Related to Anesthesia: None Noted
[2017-11-21] MEDS: ACETAMINOPHEN 325 MG TAB PO PRN (13:46)
[2017-11-21] MEDS: SENNOSIDES 1 TAB PO SCH ×2 (14:44→20:34)
[2017-11-21] MEDS: QUEtiapine FUMARATE 200 MG TAB PO SCH (20:34)
[2017-11-21] MEDS: PRAZOSIN HCL 5 MG CAP PO SCH (20:34)
[2017-11-21] MEDS: LEVOTHYROXINE 112 MCG TAB PO SCH (20:34)
[2017-11-21] MEDS: CHOLECALCIFEROL VIT D3 1,000 UNITS TAB PO SCH (20:34)
[2017-11-22] MEDS: SENNOSIDES 1 TAB PO SCH ×2 (08:13→21:07)
[2017-11-22] MEDS: PARoxetine HCL 20 MG TAB PO SCH (08:13)
[2017-11-22] MEDS: OMEGA-3 FATTY ACIDS 1,000 MG CAP PO SCH ×2 (08:13→21:07)
[2017-11-22] MEDS: LORazepam 0.5 MG TAB PO PRN (11:04)
[2017-11-22] MEDS ORDERED: LORazepam 0.5 MG TAB PO PRN (11:49)
[2017-11-22] MEDS ORDERED: QUEtiapine FUMARATE 100 MG TAB ONE (14:58)
[2017-11-22] MEDS ORDERED: QUEtiapine FUMARATE 100 MG TAB PO ONE (15:15)
--- NOTE | 2017-11-22 19:00 | SOAPPROG ---
CAREN Progress Note Assessment/Plan: Assessment: Plan: 11/22/17 19:03 Mood: Remains erratic, somewhat incongruent in presentation. Very valuable to be able to witness this first hand. Continues to report high level of subjective suffering with focus on "racing thoughts." WIll discuss with pt's and Dr. Young and choose path forward re: meds. Subjective: Pt seen, discussed with staff. Reports feeling "really rough this morning." I interviewed him at 1115 and he was participating in art group. He states he asked for lorazepam earlier for "just not feeling right" and that it was not helpful. RN later asked for re-dose which was also not helpful. Order given for one-time dose of SQL 100mg. I reviewed past medications with pt and sent an email to his in re: previous responses to lithium, carbamazepine, benzo's, Trileptal. Pt agrees to continue ECT to monitor response. We have not noticed any of the reported severe cognitive issues he was experiencing at home. "Racing thoughts " continue with depressed mood. Objective: Vital Signs Temp Pulse Resp BP Pulse Ox 36.6 C 92 16 107/67 94 11/22/17 06:00 11/22/17 06:00 11/22/17 06:00 11/22/17 06:00 11/22/17 06:00 11/21/17 11/22/17 11/23/17 05:59 05:59 05:59 Intake Total 1000 Balance 1000 MSE: Adequately groomed. Appears quiet and calm when observed in group, but tells me he "10/10 anxious and racing on the inside." Affect is o/w constricted , stable. Mood is "bad." TP linear. TC reveals no overt psychosis. Continues to experience "strong thoughts to cut myself." Staff notes numerous self- induced scratches on his arms. Pt states these were accidental or he doesn't remember where they came from. - Time Spent With Patient Time Spent With Patient: 25" ICD10 Worksheet Patient Problems: Problems Problem Status Onset Bipolar 1 disorder, depressed, severe Acute
[2017-11-22] MEDS: LEVOTHYROXINE 112 MCG TAB PO SCH (21:07)
[2017-11-22] MEDS: CHOLECALCIFEROL VIT D3 1,000 UNITS TAB PO SCH (21:07)
[2017-11-22] MEDS: PRAZOSIN HCL 5 MG CAP PO SCH (21:07)
[2017-11-22] MEDS: QUEtiapine FUMARATE 200 MG TAB PO SCH (21:07)
[2017-11-23] MEDS ORDERED: CITRIC ACID/SODIUM CITRATE 30 ML UDCUP PO PRN (05:00)
[2017-11-23] MEDS ORDERED: ONDANSETRON DISINTEGRATING 4 MG TAB PO PRN (05:00)
[2017-11-23] MEDS ORDERED: NS 1,000 ML IV PRN (05:00)
[2017-11-23] MEDS: SENNOSIDES 1 TAB PO SCH ×2 (08:22→21:58)
[2017-11-23] MEDS: OMEGA-3 FATTY ACIDS 1,000 MG CAP PO SCH ×2 (08:23→21:57)
[2017-11-23] MEDS: PARoxetine HCL 20 MG TAB PO SCH (08:23)
--- NOTE | 2017-11-23 14:03 | PDHPUP ---
History & Physical Update H&P update statement: This history and physical update is based on an assessment of the patient which was completed after admission or registration (within 24 hours), but prior to the surgery/procedure. H&P update: H&P reviewed & patient examined, no change in patient's condition since H&P completed
--- NOTE | 2017-11-23 14:04 | PDANEPAE ---
ECT Pre Anesthetic Evaluation Allergies/Adverse Reactions: disulfiram Allergy (Unknown, Unverified 11/19/17 21:58) divalproex sodium [From Depakote] Allergy (Unknown, Unverified 11/19/17 21:52) lamotrigine [From Lamictal] Allergy (Unknown, Unverified 11/19/17 21:58) lurasidone [From Latuda] Allergy (Unknown, Unverified 11/19/17 21:58) sertraline [From Zoloft] Allergy (Unknown, Unverified 11/19/17 21:58) Other-Enter Comments valbenazine [From Ingrezza] Allergy (Verified 07/06/17 14:37) Anxiety Patient ID confirmed: Yes H&P reviewed: Yes Pre-anesthetic history reviewed: Yes Heart: regular rate and rhythym, no murmur, rub, or gallop Lungs: no respiratory distress, clear to auscultation Mallampati Score: Class 2 ASA Status: II ([id number]) Home Medications: Medication Instructions Recorded PRAZOSIN HCL 10 mg PO HS 04/21/16 [place]-3S/Dha/Epa/Fish Oil [Fish 1 cap PO BID 06/01/17 Oil 1,200 mg Softgel] Sennosides [Senokot] 1 tab PO BID 06/01/17 Multivitamins [Multivitamin (*)] 2 each PO DAILY 06/25/17 PARoxetine HCL [Paxil 20mg (*)] 40 mg PO DAILY 06/25/17 Quetiapine Fumarate [Seroquel] 800 mg PO HS 06/25/17 Cholecalciferol Vit D3 [Vitamin D3 2,000 units PO HS 07/09/17 (*)] Herbals/Supplements -Info Only 1 ea PO DAILY 11/19/17 Levothyroxine [Synthroid 112 mcg 112 mcg PO HS 11/19/17 (*)] Medication review: completed Patient interviewed: Yes Patient examined: Yes Anesthetic plan discussed with patient: Yes Anesthetic risks discussed with patient: Yes ECT Pre-Anesthetic History - Height & Weight Height: 187.96 cm Weight: 104.326 kg BMI: 29.55 - Anesthesia History Hx Anesthesia Complications (with details): no Family Hx Anesthesia Complications: no - Medications In the Past 6 Months the Patient Has Taken: Thyroid Medication - Tobacco/Alcohol/Drug Use Smoking Status: Never smoked Hx Drug/Substance Abuse: No Alcohol Use: No - Prior Surgeries/Hospitalizations Prior Surgeries: Lower back fusion Prior Medical Hospitalizations: no - Pulmonary History ECT Hx Asthma: No Hx Abnormal Chest X-Ray: No Hx Oxygen in Use at Home: No - Cardiovascular History Hx Hypertension: No Currently Uses Hypertension Medication: No Hx Arrhythmias: No Hx Palpitations: No Hx Chest Pain: No Hx Coronary Artery / Peripheral Vascular Disease: No Hx Blood Clot: No - Neurologic History Hx Cerebrovascular Accident: No Hx CT Scan Or MRI Of The Brain: No Hx Epilepsy, Convulsions, Seizures, Or Blackouts: No Hx Frequent Or Severe Headaches: No Hx Numbness: No Hx Neurologic Disorder: No - Dental History Current Dental Issues: Other Dental History Comment: fitted for guard due to biting cheeks and tongue - Endocrine History Hx Diabetes: No Current Daily Insulin Injections: No Hx Thyroid Problems: No - Renal/Urologic History Hx Renal Disorders: No Hx Urinary Tract Problems: No - Liver History Hx Hepatic Disorders: No - Cancer History Hx Cancer: No - Hematology History Hx Unexplained Bleeding Of Any Type: No Hx Ease Of Bruising: No Hx Anemia: No - Gastrointestinal History Hx Gastroesophogeal Reflux Disease: No Hx Ulcers: No Hx Hiatal Hernia: No Hx Difficulty Swallowing: No - Musculoskeletal Hisory Hx Chronic Pain: Yes Chronic Pain Location: Back Hx Arthritis: No - Opthalmic History Hx Glaucoma: No Visual Assistive Devices: Glasses Hx Opthalmic Disorders: No - Other Health History Physical Disabililty: No Recent Cough, Cold, or Fever: No Significant Weight Loss In The Last 4 Months: No Other Health History Comment: PTSD, pt on disability from back injury
--- NOTE | 2017-11-23 14:18 | PDECTPN ---
ECT Progress Note Patient Problems: Problems Problem Status Onset Code Bipolar 1 disorder, depressed, severe Acute F31.4 Date: 11/23/17 ECT provider: Wilmer Quinonez Anesthesia: Aram Vaughan Stimulus dose (%): 100 Pulse width: 0.5 ECT EMG (sec): 32 ECT EEG (sec): 40 ECT treatment type: bilateral QIDS-SR Total Score: 23 QIDS-SR Question #12 Score: 2 MMSE Total Score (Max = 21): 15 Next ECT date: 11/26/17 Next ECT time: 06:30 O/P psychiatrist follow up with : Hector O/P psychiatrist follow up: direct communication Home medications: Medication Instructions Recorded PRAZOSIN HCL 10 mg PO HS 04/21/16 [place]-3S/Dha/Epa/Fish Oil [Fish 1 cap PO BID 06/01/17 Oil 1,200 mg Softgel] Sennosides [Senokot] 1 tab PO BID 06/01/17 Multivitamins [Multivitamin (*)] 2 each PO DAILY 06/25/17 PARoxetine HCL [Paxil 20mg (*)] 40 mg PO DAILY 06/25/17 Quetiapine Fumarate [Seroquel] 800 mg PO HS 06/25/17 Cholecalciferol Vit D3 [Vitamin D3 2,000 units PO HS 07/09/17 (*)] Herbals/Supplements -Info Only 1 ea PO DAILY 11/19/17 Levothyroxine [Synthroid 112 mcg 112 mcg PO HS 11/19/17 (*)] Current treatment plan: acute phase, increased frequency cycle d/t exacerbation of symptoms Treatment plan frequency: 3 times per week ECT narrative: Pt seen in ongoing maintenance ECT. He reports continued marginal mood and racing thoughts. Conversant and clear today, but subjectively "out of it." Describes sleep as discontinuous. Pt' s W reports that lithium was tried in the remote past and "was neither good nor bad." Pt agreeable to a retrial of this for the purpose of improving mood quality and stability, decrease racing thoughts and decrease volatility. The risks, benefits and alternatives of this are reviewed. Will also d/c lorazepam in favor of scheduled clonazepam. This is not to be a permanent, but rather temporizing effort to decrease his general over-activation. Affect is constricted, anxious. Mood is "not my best." TP linear. TC reveals no psychosis. Continues to endorse SI. Underwent bilateral ECT without complication. Plan as above.
[2017-11-23] MEDS: ACETAMINOPHEN 325 MG TAB PO PRN ×2 (14:52→20:41)
[2017-11-23] MEDS: QUEtiapine FUMARATE 25 MG TAB PO SCH ×2 (18:17→21:58)
[2017-11-23] MEDS: CHOLECALCIFEROL VIT D3 1,000 UNITS TAB PO SCH (21:55)
[2017-11-23] MEDS: LEVOTHYROXINE 112 MCG TAB PO SCH (21:56)
[2017-11-23] MEDS: clonazePAM 1 MG TAB PO SCH (21:56)
[2017-11-23] MEDS: PRAZOSIN HCL 5 MG CAP PO SCH (21:57)
[2017-11-23] MEDS: LITHIUM CARBONATE ER 450 MG TAB PO SCH (21:57)
[2017-11-23] MEDS: QUEtiapine FUMARATE 200 MG TAB PO SCH (21:58)
[2017-11-24] MEDS: QUEtiapine FUMARATE 25 MG TAB PO SCH ×6 (02:01→21:39)
[2017-11-24] MEDS: clonazePAM 1 MG TAB PO SCH ×2 (08:54→20:25)
[2017-11-24] MEDS: SENNOSIDES 1 TAB PO SCH ×2 (08:54→20:25)
[2017-11-24] MEDS: PARoxetine HCL 20 MG TAB PO SCH (08:55)
[2017-11-24] MEDS: OMEGA-3 FATTY ACIDS 1,000 MG CAP PO SCH ×2 (09:34→20:26)
--- NOTE | 2017-11-24 16:04 | SOAPPROG ---
SORAYSHAWN Progress Note Assessment/Plan: Assessment: Per Dr. Quinonez's note: Pt seen in ongoing maintenance ECT. He reports continued marginal mood and racing thoughts. Conversant and clear today, but subjectively "out of it." Describes sleep as discontinuous. Pt' s W reports that lithium was tried in the remote past and "was neither good nor bad." Pt agreeable to a retrial of this for the purpose of improving mood quality and stability, decrease racing thoughts and decrease volatility. The risks, benefits and alternatives of this are reviewed. Will also d/c lorazepam in favor of scheduled clonazepam. This is not to be a permanent, but rather temporizing effort to decrease his general over-activation. Affect is constricted, anxious. Mood is "not my best." TP linear. TC reveals no psychosis. Continues to endorse SI. Underwent bilateral ECT without complication. Plan as above. Plan: 11/24/17 16:00 1. Patient reports mood is "the same." He denies any SI today. 2. Patient says new meds "seem to be" helping, but not sure. 3. No med changes. 4. ECT on Sun Subjective: Met with patient, reviewed chart and d/w staff. Patient is present in milieu, watching TV, but does not interact with peers and has only minimal interaction with staff. Patient was pleasant and polite with MD. He says he doesn't feel much different after ECT, says he feels "the same." However, he denied SI today after endorsing it yesterday. Objective: Vital Signs Temp Pulse Resp BP Pulse Ox 36.6 C 79 14 96/56 L 94 11/24/17 06:00 11/24/17 06:00 11/24/17 06:00 11/24/17 06:00 11/24/17 06:00 11/23/17 11/24/17 11/25/17 05:59 05:59 05:59 Intake Total 670 Balance 670 MSE: Affect: Flat Mood: "Same" TP: Linear TC: Denies SI today, no psychotic sxs Insight/Judgment: Fair - Time Spent With Patient Time Spent With Patient: 15" - Pending Discharge Pending Discharge Within 24 Hours: No Pending Discharge Within 48 Hours: No ICD10 Worksheet Patient Problems: Problems Problem Status Onset Bipolar 1 disorder, depressed, severe Acute
--- NOTE | 2017-11-24 16:16 | ASMTBHDC ---
Notes Note: Notes: Patient spend most of the day isolated in his room in bed. He reports that he goses to groups but did not go today. Patient was encouraged to attend one group this evening. He slept 8 hours last night. Patient will discharge to outpatient ECT services. Date Signed: 11/24/2017 04:16 PM Electronically Signed By:Raegan Bernal
[2017-11-24] MEDS: CHOLECALCIFEROL VIT D3 1,000 UNITS TAB PO SCH (20:25)
[2017-11-24] MEDS: LEVOTHYROXINE 112 MCG TAB PO SCH (20:25)
[2017-11-24] MEDS: LITHIUM CARBONATE ER 450 MG TAB PO SCH (20:25)
[2017-11-24] MEDS: PRAZOSIN HCL 5 MG CAP PO SCH (20:25)
[2017-11-24] MEDS: QUEtiapine FUMARATE 200 MG TAB PO SCH (20:26)
[2017-11-25] MEDS: QUEtiapine FUMARATE 25 MG TAB PO SCH ×6 (02:15→20:47)
[2017-11-25] MEDS: clonazePAM 1 MG TAB PO SCH (08:49)
[2017-11-25] MEDS: OMEGA-3 FATTY ACIDS 1,000 MG CAP PO SCH ×2 (08:49→20:46)
[2017-11-25] MEDS: SENNOSIDES 1 TAB PO SCH ×2 (08:49→20:46)
[2017-11-25] MEDS: PARoxetine HCL 20 MG TAB PO SCH (08:49)
--- NOTE | 2017-11-25 16:28 | SOAPPROG ---
SOAP Progress Note Assessment/Plan: Assessment: Per Dr. Quinonez's note: Pt seen in ongoing maintenance ECT. He reports continued marginal mood and racing thoughts. Conversant and clear today, but subjectively "out of it." Describes sleep as discontinuous. Pt' s W reports that lithium was tried in the remote past and "was neither good nor bad." Pt agreeable to a retrial of this for the purpose of improving mood quality and stability, decrease racing thoughts and decrease volatility. The risks, benefits and alternatives of this are reviewed. Will also d/c lorazepam in favor of scheduled clonazepam. This is not to be a permanent, but rather temporizing effort to decrease his general over-activation. Affect is constricted, anxious. Mood is "not my best." TP linear. TC reveals no psychosis. Continues to endorse SI. Underwent bilateral ECT without complication. Plan as above. Plan: 11/24/17 16:00 1. Patient reports mood is "the same." He denies any SI today. 2. Patient says new meds "seem to be" helping, but not sure. 3. No med changes. 4. ECT on Sun11/25/17 16:24 1. Continues to tolerate new meds, denies any SE's. 2. Isolating less in his room. Spent time in TV room visiting with . 3. Presents calmer, less anxious. 4. ECT tomorrow Subjective: Met with patient, reviewed chart and d/w staff. Patient presents less anxious, calmer than when admitted. He visited for > hour with his today. He seemed more relaxed during her visit. Objective: Vital Signs Temp Pulse Resp BP Pulse Ox 36.6 C 83 10 L 118/64 96 11/24/17 06:00 11/25/17 12:55 11/25/17 12:55 11/25/17 12:55 11/25/17 12:55 11/24/17 11/25/17 11/26/17 05:59 05:59 05:59 Intake Total 670 Balance 670 MSE: Affect: Flat Mood: "OK" TP: Paucity of speech, goal-directed TC: Denies AH/VH, no SI today Insight/Judgment: Improving - Time Spent With Patient Time Spent With Patient: 15" - Pending Discharge Pending Discharge Within 24 Hours: No Pending Discharge Within 48 Hours: No ICD10 Worksheet Patient Problems: Problems Problem Status Onset Bipolar 1 disorder, depressed, severe Acute
[2017-11-25] MEDS: LITHIUM CARBONATE ER 450 MG TAB PO SCH (20:33)
[2017-11-25] MEDS: PRAZOSIN HCL 5 MG CAP PO SCH (20:46)
[2017-11-25] MEDS: CHOLECALCIFEROL VIT D3 1,000 UNITS TAB PO SCH (20:46)
[2017-11-25] MEDS: QUEtiapine FUMARATE 200 MG TAB PO SCH (20:46)
[2017-11-25] MEDS: LEVOTHYROXINE 112 MCG TAB PO SCH (20:46)
[2017-11-26] MEDS: QUEtiapine FUMARATE 25 MG TAB PO SCH ×6 (02:14→21:10)
[2017-11-26] MEDS ORDERED: CITRIC ACID/SODIUM CITRATE 30 ML UDCUP PO PRN (05:00)
[2017-11-26] MEDS ORDERED: NS 1,000 ML IV PRN (05:00)
[2017-11-26] MEDS ORDERED: ONDANSETRON DISINTEGRATING 4 MG TAB PO PRN (05:00)
[2017-11-26] MEDS ORDERED: ONDANSETRON DISINTEGRATING 4 MG TAB ONE (06:08)
[2017-11-26] MEDS ORDERED: CITRIC ACID/SODIUM CITRATE 30 ML UDCUP ONE (06:08)
--- NOTE | 2017-11-26 06:33 | PDECTPN ---
ECT Progress Note Patient Problems: Problems Problem Status Onset Code Bipolar 1 disorder, depressed, severe Acute F31.4 Date: 11/26/17 ECT provider: Wilmer Quinonez Anesthesia: Aram Vaughan Stimulus dose (%): 100 Pulse width: 0.5 ECT EMG (sec): 25 ECT EEG (sec): 42 ECT treatment type: bilateral QIDS-SR Total Score: 23 QIDS-SR Question #12 Score: 2 MMSE Total Score (Max = 21): 15 Next ECT date: 11/28/17 Next ECT time: 07:00 O/P psychiatrist follow up with : Hector O/P psychiatrist follow up: direct communication Home medications: Medication Instructions Recorded PRAZOSIN HCL 10 mg PO HS 04/21/16 [place]-3S/Dha/Epa/Fish Oil [Fish 1 cap PO BID 06/01/17 Oil 1,200 mg Softgel] Sennosides [Senokot] 1 tab PO BID 06/01/17 Multivitamins [Multivitamin (*)] 2 each PO DAILY 06/25/17 PARoxetine HCL [Paxil 20mg (*)] 40 mg PO DAILY 06/25/17 Quetiapine Fumarate [Seroquel] 800 mg PO HS 06/25/17 Cholecalciferol Vit D3 [Vitamin D3 2,000 units PO HS 07/09/17 (*)] Herbals/Supplements -Info Only 1 ea PO DAILY 11/19/17 Levothyroxine [Synthroid 112 mcg 112 mcg PO HS 11/19/17 (*)] Medication review: completed Current treatment plan: acute phase, increased frequency cycle d/t exacerbation of symptoms Treatment plan frequency: 3 times per week ECT narrative: Pt seen in ongoing maintenance ECT, chart reviewed. States he feels "a little better." Staff notes ongoing, but stable level of cognitive delay. He had a good visit with his over the weekend. Tolerating med changes well with no SE's. Affect is constricted, anxious. Mood is "better." TP linear with some delay. TC reveals no psychosis. Continues to endorse SI. Underwent bilateral ECT without complication. Will continue acute course ECT. Reed level tomorrow.
[2017-11-26] MEDS ORDERED: ACETAMINOPHEN 325 MG TAB ONE (07:17)
[2017-11-26] MEDS: ACETAMINOPHEN 325 MG TAB PO PRN (07:19)
[2017-11-26] MEDS: PARoxetine HCL 20 MG TAB PO SCH (07:57)
[2017-11-26] MEDS: SENNOSIDES 1 TAB PO SCH ×2 (07:57→21:02)
[2017-11-26] MEDS: OMEGA-3 FATTY ACIDS 1,000 MG CAP PO SCH ×2 (07:58→21:03)
--- NOTE | 2017-11-26 12:10 | ASMTCMCOM ---
CM Note CM Note Notes: Pt. reports feeling "okay". Pt. stated he slept "off and on'. Pt. reports no issues with his current medications, adding "no, they're alright". Pt. stated ECT is "working as it is". Pt. reports "eating enough". Pt. stated he has "been to some" groups. Pt. denies SI, HI, AVH and paranoia. When asked about SI, pt. stated "not right now". Pt. presents as alert, calm, quiet, with good eye contact and a mostly pleasant demeanor. Staff report pt. sleeping 8 hours. Family meeting scheduled for Sunday11/27/17 at 11:30am Date Signed: 11/26/2017 12:01 PM Electronically Signed By:Shayna Rodriguez
--- NOTE | 2017-11-26 12:15 | ASMTBHFAM ---
Notes Note: Notes: CC spoke with WOCGilda briefly. WOC stated pt's paranoia and personality changes seem to have gone away. WOC stated she saw no evidence of paranoia during her visit on Sunday. WOC stated pt. appears depressed but less paranoid and more trusting of her. WOC stated "no viveros to bring him home". WOC stated she wants pt. to be thinking clearly and able to care for himself before coming home. WOC has concerns about pt. remembering to feed himself or let the dog in and out. Date Signed: 11/26/2017 12:08 PM Electronically Signed By:Shayna Rodriguez
[2017-11-26] MEDS: QUEtiapine FUMARATE 200 MG TAB PO SCH (21:02)
[2017-11-26] MEDS: LITHIUM CARBONATE ER 450 MG TAB PO SCH (21:02)
[2017-11-26] MEDS: PRAZOSIN HCL 5 MG CAP PO SCH (21:03)
[2017-11-26] MEDS: CHOLECALCIFEROL VIT D3 1,000 UNITS TAB PO SCH (21:03)
[2017-11-26] MEDS: LEVOTHYROXINE 112 MCG TAB PO SCH (21:03)
[2017-11-26] MEDS: clonazePAM 1 MG TAB PO SCH (21:03)
[2017-11-27] MEDS: QUEtiapine FUMARATE 25 MG TAB PO SCH ×2 (02:57→06:34)
[2017-11-27] MEDS: SENNOSIDES 1 TAB PO SCH ×2 (08:54→18:02)
[2017-11-27] MEDS: clonazePAM 1 MG TAB PO SCH ×2 (08:54→18:02)
[2017-11-27] MEDS: OMEGA-3 FATTY ACIDS 1,000 MG CAP PO SCH ×2 (08:54→18:13)
[2017-11-27] MEDS: PARoxetine HCL 20 MG TAB PO SCH (08:54)
[2017-11-27] MEDS ORDERED: QUEtiapine FUMARATE 25 MG TAB PO PRN (09:24)
--- NOTE | 2017-11-27 14:53 | ASMTBHFAM ---
Notes Note: Notes: Family meeting with pt, WOC, CC and MD. Pt. reports feeling "less heavy", "less on top of my heart". MD discussed medication changes, pt. and WOC agreed with these changes. WOC stated she wants pt. to create a plan for when he has alcohol cravings, if he has the desire to self-harm, and if he has suicidal thoughts before returning home. Pt. stated "no" when asked about craving alcohol, wanting to cut and SI. WOC stated "your much more back to you" to pt. Pt. stated "I'll stay as long as the doctor wants me to stay". discussed ECT tomorrow and pt. possibly discharging Sunday morning to WOC. WOC stated pt. has an EEG on Sunday12/03/17 at 9am. Date Signed: 11/27/2017 01:38 PM Electronically Signed By:Shayna Rodriguez
--- NOTE | 2017-11-27 17:07 | SOAPPROG ---
SORAYSHAWN Progress Note Assessment/Plan: Assessment: Plan: 11/22/17 19:03 Mood: Remains erratic, somewhat incongruent in presentation. Very valuable to be able to witness this first hand. Continues to report high level of subjective suffering with focus on "racing thoughts." WIll discuss with pt's and Dr. Young and choose path forward re: meds. 11/27/17 17:08 Mood: Improving, though remains volatile. Mood is clearly better. Anxiety has decreased with normalization of racing thoughts. Will CCM, completing abbreviated acute course tomorrow. Will maintain on inpatient unit until Sunday to monitor cognitive status and insure ability to safely transition to home environment. [place] level = 0.4. Will increase to 600mg qHS. Subjective: Pt seen, discussed with staff. Reports feeling "better." States "it's like a pressure has been lifted off my heart." He is seen individually and in a family meeting with present. We reviewed the treatment plan inc: continued ECT tomorrow and then transition to weekly maintenance. voices concern that pt is not able to care for himself at home at this point and is afraid he will regress and continue to drink or self-harm. Pt states he has no intention of doing those things but acknowledges his ongoing cognitive issues that make him less able to plan or control his behaviors. He states, "Things are different, I'm ready to go home." Staff observes that pt remains volatile at time with other patients who are acting out. Short term and working memories remain poor. Objective: Vital Signs Temp Pulse Resp BP Pulse Ox 36.5 C 75 16 107/65 99 11/27/17 06:00 11/27/17 06:00 11/27/17 06:00 11/27/17 06:00 11/27/17 06:00 11/26/17 11/27/17 11/28/17 05:59 05:59 05:59 Intake Total 350 Balance 350 MSE: Adequately groomed, coop. Affect is blunted, though he does make several attempts at humor. Mood is "better." TP is generally linear, though delayed and easily derailed. TC reveals no mention of paranoid or grandiose thoughts. Denies current SI. - Time Spent With Patient Time Spent With Patient: 45" ICD10 Worksheet Patient Problems: Problems Problem Status Onset Bipolar 1 disorder, depressed, severe Acute
[2017-11-27] MEDS: QUEtiapine FUMARATE 200 MG TAB PO SCH (18:01)
[2017-11-27] MEDS: CHOLECALCIFEROL VIT D3 1,000 UNITS TAB PO SCH (18:01)
[2017-11-27] MEDS: LEVOTHYROXINE 112 MCG TAB PO SCH (18:02)
[2017-11-27] MEDS: PRAZOSIN HCL 5 MG CAP PO SCH (18:02)
[2017-11-27] MEDS: LITHIUM CARBONATE ER 300 MG TAB PO SCH (18:11)
[2017-11-28] MEDS ORDERED: NS 1,000 ML IV PRN (05:00)
[2017-11-28] MEDS ORDERED: ONDANSETRON DISINTEGRATING 4 MG TAB PO PRN (05:00)
[2017-11-28] MEDS ORDERED: CITRIC ACID/SODIUM CITRATE 30 ML UDCUP PO PRN (05:00)
--- NOTE | 2017-11-28 07:14 | PDANEPAE ---
ECT Pre Anesthetic Evaluation Allergies/Adverse Reactions: disulfiram Allergy (Unknown, Unverified 11/19/17 21:58) divalproex sodium [From Depakote] Allergy (Unknown, Unverified 11/19/17 21:52) lamotrigine [From Lamictal] Allergy (Unknown, Unverified 11/19/17 21:58) lurasidone [From Latuda] Allergy (Unknown, Unverified 11/19/17 21:58) sertraline [From Zoloft] Allergy (Unknown, Unverified 11/19/17 21:58) Other-Enter Comments valbenazine [From Ingrezza] Allergy (Verified 07/06/17 14:37) Anxiety Patient ID confirmed: Yes H&P reviewed: Yes Pre-anesthetic history reviewed: Yes Heart: regular rate and rhythym, no murmur, rub, or gallop Lungs: no respiratory distress, clear to auscultation Mallampati Score: Class 2 ASA Status: II Home Medications: Medication Instructions Recorded PRAZOSIN HCL 10 mg PO HS 04/21/16 [place]-3S/Dha/Epa/Fish Oil [Fish 1 cap PO BID 06/01/17 Oil 1,200 mg Softgel] Sennosides [Senokot] 1 tab PO BID 06/01/17 Multivitamins [Multivitamin (*)] 2 each PO DAILY 06/25/17 PARoxetine HCL [Paxil 20mg (*)] 40 mg PO DAILY 06/25/17 Quetiapine Fumarate [Seroquel] 800 mg PO HS 06/25/17 Cholecalciferol Vit D3 [Vitamin D3 2,000 units PO HS 07/09/17 (*)] Herbals/Supplements -Info Only 1 ea PO DAILY 11/19/17 Levothyroxine [Synthroid 112 mcg 112 mcg PO HS 11/19/17 (*)] Medication review: completed Patient interviewed: Yes Patient examined: Yes Anesthetic plan discussed with patient: Yes Anesthetic risks discussed with patient: Yes ECT Pre-Anesthetic History - Height & Weight Height: 187.96 cm Weight: 104.326 kg BMI: 29.55 - Anesthesia History Hx Anesthesia Complications (with details): no Family Hx Anesthesia Complications: no - Medications In the Past 6 Months the Patient Has Taken: Thyroid Medication - Tobacco/Alcohol/Drug Use Smoking Status: Never smoked Hx Drug/Substance Abuse: No Alcohol Use: No - Prior Surgeries/Hospitalizations Prior Surgeries: Lower back fusion Prior Medical Hospitalizations: no - Pulmonary History ECT Hx Asthma: No Hx Abnormal Chest X-Ray: No Hx Oxygen in Use at Home: No - Cardiovascular History Hx Hypertension: No Currently Uses Hypertension Medication: No Hx Arrhythmias: No Hx Palpitations: No Hx Chest Pain: No Hx Coronary Artery / Peripheral Vascular Disease: No Hx Blood Clot: No - Neurologic History Hx Cerebrovascular Accident: No Hx CT Scan Or MRI Of The Brain: No Hx Epilepsy, Convulsions, Seizures, Or Blackouts: No Hx Frequent Or Severe Headaches: No Hx Numbness: No Hx Neurologic Disorder: No - Dental History Current Dental Issues: Other Dental History Comment: fitted for guard due to biting cheeks and tongue - Endocrine History Hx Diabetes: No Current Daily Insulin Injections: No Hx Thyroid Problems: No - Renal/Urologic History Hx Renal Disorders: No Hx Urinary Tract Problems: No - Liver History Hx Hepatic Disorders: No - Cancer History Hx Cancer: No - Hematology History Hx Unexplained Bleeding Of Any Type: No Hx Ease Of Bruising: No Hx Anemia: No - Gastrointestinal History Hx Gastroesophogeal Reflux Disease: No Hx Ulcers: No Hx Hiatal Hernia: No Hx Difficulty Swallowing: No - Musculoskeletal Hisory Hx Chronic Pain: Yes Chronic Pain Location: Back Hx Arthritis: No - Opthalmic History Hx Glaucoma: No Visual Assistive Devices: Glasses Hx Opthalmic Disorders: No - Other Health History Physical Disabililty: No Recent Cough, Cold, or Fever: No Significant Weight Loss In The Last 4 Months: No Other Health History Comment: PTSD, pt on disability from back injury
--- NOTE | 2017-11-28 07:17 | PDECTPN ---
ECT Progress Note Patient Problems: Problems Problem Status Onset Code Bipolar 1 disorder, depressed, severe Acute F31.4 Date: 11/28/17 ECT provider: Wilmer Quinonez Anesthesia: Aram Vaughan Stimulus dose (%): 100 Pulse width: 0.5 ECT EMG (sec): 20 ECT EEG (sec): 24 ECT treatment type: bilateral QIDS-SR Total Score: 24 QIDS-SR Question #12 Score: 2 MMSE Total Score (Max = 21): 20 Next ECT date: 12/05/17 Next ECT time: 13:00 O/P psychiatrist follow up with : Hector O/P psychiatrist follow up: direct communication Home medications: Medication Instructions Recorded PRAZOSIN HCL 10 mg PO HS 04/21/16 [place]-3S/Dha/Epa/Fish Oil [Fish 1 cap PO BID 06/01/17 Oil 1,200 mg Softgel] Sennosides [Senokot] 1 tab PO BID 06/01/17 Multivitamins [Multivitamin (*)] 2 each PO DAILY 06/25/17 PARoxetine HCL [Paxil 20mg (*)] 40 mg PO DAILY 06/25/17 Quetiapine Fumarate [Seroquel] 800 mg PO HS 06/25/17 Cholecalciferol Vit D3 [Vitamin D3 2,000 units PO HS 07/09/17 (*)] Herbals/Supplements -Info Only 1 ea PO DAILY 11/19/17 Levothyroxine [Synthroid 112 mcg 112 mcg PO HS 11/19/17 (*)] Medication review: completed Current treatment plan: acute phase, increased frequency cycle d/t exacerbation of symptoms Treatment plan frequency: 3 times per week ECT narrative: Pt seen in ongoing maintenance ECT. He notes continued improvements in mood and anxiety. Cognition is better. Affect is less constricted, better modulated, brighter. Mood is "better." TP linear with some delay. TC reveals no psychosis. Does not endorse SI. Underwent bilateral ECT without complication. Will complete abbreviated acute course of ECT today. Return in one week after EEG for treatment.
[2017-11-28] MEDS: ACETAMINOPHEN 325 MG TAB PO PRN (08:05)
[2017-11-28] MEDS: OMEGA-3 FATTY ACIDS 1,000 MG CAP PO SCH ×2 (08:45→20:56)
[2017-11-28] MEDS: clonazePAM 1 MG TAB PO SCH ×2 (08:45→20:56)
[2017-11-28] MEDS: SENNOSIDES 1 TAB PO SCH ×2 (08:45→20:56)
[2017-11-28] MEDS: PARoxetine HCL 20 MG TAB PO SCH (08:45)
[2017-11-28] MEDS: QUEtiapine FUMARATE 200 MG TAB PO SCH (20:55)
[2017-11-28] MEDS: CHOLECALCIFEROL VIT D3 1,000 UNITS TAB PO SCH (20:56)
[2017-11-28] MEDS: LITHIUM CARBONATE ER 300 MG TAB PO SCH (20:56)
[2017-11-28] MEDS: LEVOTHYROXINE 112 MCG TAB PO SCH (20:56)
[2017-11-28] MEDS: PRAZOSIN HCL 5 MG CAP PO SCH (20:56)
[2017-11-29 06:50] VITALS: BP 109/66
[2017-11-29] MEDS: SENNOSIDES 1 TAB PO SCH (08:35)
[2017-11-29] MEDS: PARoxetine HCL 20 MG TAB PO SCH (08:36)
[2017-11-29] MEDS: OMEGA-3 FATTY ACIDS 1,000 MG CAP PO SCH (08:36)
[2017-11-29] MEDS: clonazePAM 1 MG TAB PO SCH (08:36)
--- NOTE | 2017-11-29 11:28 | ASMTBHDC ---
Notes Note: Notes: CC confirmed client's follow up out-patient appst, etc. Also, contacted (Tanisha) who noted that she would be here around 1pm or after to p/u client, etc. Follow up appointments: Dr. Milton Young Next Appt: SundayDecember 12 (12/12/17) at 1:30pm Dr. Quinonez, [address] [address] Next Appt: SundayDecember 05 () at 1pm Date Signed: 11/29/2017 11:27 AM Electronically Signed By:Cuate Ocampo
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
== END 2017-11-29 13:36 | disposition home or self-care (01) | DRG 885 ==
LOC: BBEH 20:40
PROVIDERS: ADMIT Psychiatry & Neurology Psychiatry; ATTEND Psychiatry & Neurology Psychiatry
PROC: GZB2ZZZ Electroconvulsive Therapy, Bilateral-Single Seizure (ICD-10-PCS; principal; 2017-11-21)
DX: F31.5 Bipolar disorder, current episode depressed, severe, with psychotic features (principal); F43.12 Post-traumatic stress disorder, chronic; R45.851 Suicidal ideations; G31.84 Mild cognitive impairment of uncertain or unknown etiology; R00.0 Tachycardia, unspecified; R25.1 Tremor, unspecified; R51 Headache; E03.9 Hypothyroidism, unspecified; G47.33 Obstructive sleep apnea (adult) (pediatric); M54.5 Low back pain; Z87.820 Personal history of traumatic brain injury; Z72.89 Other problems related to lifestyle; Z98.1 Arthrodesis status; Z91.5 Personal history of self-harm; Z62.810 Personal history of physical and sexual abuse in childhood
CPT/HCPCS: 80307; G0480

== ENCOUNTER 2018-04-11 02:45 | Inpatient (IN) | payer OTHER ==
[2018-04-11] MEDS ORDERED: MAGNESIUM HYDROXIDE 30 ML UDCUP PO PRN (03:02)
[2018-04-11] MEDS ORDERED: MAG HYDROX/AL HYDROX/SIMETH 30 ML UDCUP PO PRN (03:02)
[2018-04-11] MEDS ORDERED: OLANZapine 5 MG TAB PO PRN (03:04)
--- NOTE | 2018-04-11 07:59 | ASMTBHMTP ---
Master Treatment Plan Master Treatment Plan Answers: Depressed Mood with for: Suicidal Ideation Date: 04/11/2018 Diagnosis on Admission: Major Depressive Disorder, Recurrent Severe Expected length of stay: 3-5 days Reason for admission: Notes: Per Report: Client is a 47 yoa male with a long history of treament resistant depression. He arrived at the ED to be medically cleared for in-patient ECT.* Patient's stated presenting problems: Notes: Client would not participate Patient's goals for treatment: Notes: Client would not participate Patient's strengths: Notes: Client would not participate Identify supports outside of hospital: Notes: Client would not participate Discharge criteria: Notes: Suicidal Ideation will resolve and patient will have a plan to safely manage recurrent suicidal ideation. Initial disposition plan/considerations: Notes: Client would not participate Master Treatment Plan Required Signatures Psychiatrist signature: Answers: Psychiatrist: RN on-shift signature: Answers: RN: Patient signature: Answers: Patient: Date Signed: 04/11/2018 07:59 AM Electronically Signed By:Cuate Ocampo
--- NOTE | 2018-04-11 08:27 | PDGENHP ---
History and Physical - Chief Complaint suicidal ideation - History of Present Illness 47yo M with bipolar disorder with severe depressive features currently undergoing ECT who is hospitalized for suicidal ideation. I do not have any details surrounding what exactly brought him to the hospital. I evaluated him at the [facility]. He was quite somnolent and not willing to answer many of my questions. He does deny recent fevers, shortness of breath, vomiting, diarrhea. He does not know if he's been taking his synthroid or last time his TSH was checked. He is unable to tell me if he's been using his CPAP machine. He did not use it last night as he arrived to the unit late. History Information - Allergies/Home Medication List Allergies/Adverse Reactions: disulfiram Allergy (Unknown, Verified 01/04/18 14:17) divalproex sodium [From Depakote] Allergy (Unknown, Verified 01/04/18 14:19) lamotrigine [From Lamictal] Allergy (Unknown, Verified 01/04/18 14:19) lurasidone [From Latuda] Allergy (Unknown, Verified 01/04/18 14:19) sertraline [From Zoloft] Allergy (Unknown, Verified 01/04/18 14:19) Other-Enter Comments valbenazine [From Ingrezza] Allergy (Verified 01/04/18 14:19) Anxiety Home Medications: PRAZOSIN HCL 10 mg PO HS 04/21/16 [Last Taken 04/04/18 21:00] Pool-3S/Dha/Epa/Fish Oil [Fish Oil 1,200 mg Softgel] 1 cap PO BID 06/01/17 [ Last Taken Unknown] Sennosides [Senokot] 1 tab PO BID 06/01/17 [Last Taken Unknown] Multivitamins [Multivitamin (*)] 2 each PO DAILY 06/25/17 [Last Taken Unknown] PARoxetine HCL [Paxil 20mg (*)] 40 mg PO DAILY 06/25/17 [Last Taken Unknown] Quetiapine Fumarate [Seroquel] 800 mg PO HS 06/25/17 [Last Taken Unknown] Cholecalciferol Vit D3 [Vitamin D3 (*)] 2,000 units PO HS 07/09/17 [Last Taken Unknown] Herbals/Supplements -Info Only 1 ea PO DAILY 11/19/17 [Last Taken Unknown] Levothyroxine [Synthroid 112 mcg (*)] 112 mcg PO HS 11/19/17 [Last Taken Unknown ] I have personally reviewed and updated: family history, medical history, social history, surgical history - Past Medical History Additional medical history: Bipolar disease type 1 with ECT for depressive episodes. PTSD. Traumatic brain injury with chronic headaches. Hypothyroidism. Obstructive sleep apnea with CPAP. Chronic lower back pain - Surgical History Additional surgical history: Lumbar fusion - Family History Additional family history: No family history of coronary artery disease or recent sick contacts - Social History Smoking Status: Never smoked Alcohol Use: None Drug Use: None Additional social history: Currently on disability Review of Systems Review of Systems: ROS: 10pt was reviewed & negative except for what was stated in HPI & below Physical Exam Physical Exam: Temp Pulse Resp BP Pulse Ox 36.7 C 90 16 120/90 H 92 04/11/18 03:20 04/11/18 04:27 04/11/18 04:27 04/11/18 03:20 04/11/18 04:27 Constitutional: no apparent distress, not in pain, obese, other (somnolent) Eyes: PERRL, anicteric sclera, EOMI Ears, Nose, Mouth, Throat: moist mucous membranes, hearing normal, ears appear normal, no oral mucosal ulcers Cardiovascular: regular rate and rhythym, no murmur, rub, or gallop, No JVD, No edema Respiratory: no respiratory distress, no rales or rhonchi, clear to auscultation Gastrointestinal: normoactive bowel sounds, soft, non-tender abdomen, no palpable masses Genitourinary: no bladder fullness, no bladder tenderness Skin: warm, abrasion (bilateral legs), No erythema Musculoskeletal: full muscle strength, no muscle tenderness, normal joint ROM, no joint effusions Neurologic: AAOx3 Psychiatric: interacting appropriately, not anxious, not encephalopathic, thought process linear Assessment & Plan Assessment: 47yo M with bipolar disorder with severe depressive features currently undergoing ECT who is hospitalized for suicidal ideation. Plan: 1. Suicidal ideation: He is hospitalized in inpatient psychiatry unit under M1 hold. 2. Bipolar I disorder with depressive episodes: Undergoing ECT treatment. Pyschiatry is managing these medications. 3. Hypothyroidism: His last TSH was checked 10/2017 and slightly high, no free T4 at that time. It is unclear if he's been taking his thyroid replacement. I will add on TSH to admit labs from ED. I recommend he continue his listed dose of levothyroxine at 112mcg/day. He should take this first thing in the morning on an empty stomach. If his TSH is >10, I would recommend checking a free T4. 4. ASTRID: Encourage use of CPAP. If unable to due at facility, recommend nocturnal pulse oximetry monitoring and supplemental oxygen if needed. 5. Chronic back pain: He is not on opioids and I would not recommend starting. Prefer tylenol, ibuprofen PRN. VTE ppx: ambulation Hospital Medicine services will sign off on this patient. Please contact if new medical issues arise.
--- NOTE | 2018-04-11 17:49 | BAPA ---
DATE OF SERVICE: 04/11/2018 REASON FOR ADMISSION: The patient is a 47-year-old male with a history of depressive-predo minant bipolar disorder and cognitive dysfunction. He has been a patient of mine in the outpatient [facility] for some time doing acute and maintenance ECT. He has also had several inpatient admissions rel ated to suicidality, in March of 2016, August of 2016, October of 2017 and January of 2018. On these oc casions, he had been more depressed and demonstrating a pattern of overall decline. This was the bijan e at this time, as he has been struggling significantly recently with his mood. He will have weekly ECT and that is helpful to him, but only lasts for 4 or 5 days. He then experiences rather abrupt de morris, which is characterized by social withdrawal, increased depressed mood, social isolation and fe elings of self-loathing, shame and guilt. On several occasions, he has drank alcohol, which has disi nhibited to him to the point that he will self-mutilate, causing significant injuries to primarily hi s lower extremities and forearms. This time, he binge-drank on 2 occasions this week on Sunday and , and his found him at home severely intoxicated on both occasions. He stated on both occ asions that he was drinking in order to resist the urge to kill himself. On Sunday, he told his wif e he felt like he could no longer keep himself safe. She took him to a local emergency department wh ere he was then transferred to [facility] for further evaluation. Today, I met with th e patient and he is initially lying in bed and is essentially mute. He does not make eye contact, do es not speak. Simply lying in the position. A nurse stated that she also could not get him to answer any questions. About an hour later, he was up and walking about the unit, alert and interact lincoln, stating he did not remember that I had been in his room. I was able to talk with him at that ti me briefly, but he terminated the interview, as he had to go to the bathroom. He returned about 20 m inutes later, stating he could not remember which door was mine and we talked for a while longer. He was seemingly frustrated, unable to express himself, stating that he could not remember the words he needed to say and kept indicating that he was stuttering. He stated he was very uncomfortable witho ut his mouthpiece due to his abnormal buccal oral movements related to tardive dyskinesia. He was un able to answer specific questions, though indicated he was feeling depressed and he was having though ts of suicide. He did state that he would do "whatever you want me to do to get better." I discusse d with him several options and one of which was to delay further ECT to allow for cognitive recovery. Secondly, we discussed possible medication changes and he preferred to defer this to a conversation with his . He has had numerous severe medication reactions in the past and was uncomfortable ma tabby that decision at this time. He did indicate, however, that he was willing to do whatever the [facility] consensus was regarding medications. PAST PSYCHIATRIC HISTORY: The patient has had several previous psychiatric admissions as above. He has been diagnosed with bipolar disorder for the past [address] Milton Young for outpatient m edication management. He has previous diagnoses of bipolar disorder, PTSD and possible dissociation. ALLERGIES: To disulfiram, Depakote, Lamictal, lurasidone, sertraline and Ingrezza. CURRENT MEDICATIONS: Include levothyroxine 112 mcg daily, lithium carbonate ER 600 mg h.s., melatoni n 3 mg h.s., prazosin 10 mg h.s., and Seroquel 800 mg h.s. PAST MEDICAL HISTORY: Significant for several closed-head injuries occurring in the last decade. On e, he fell down an escalator at a casino after his backpack got stuck on a sign, and another was he f ell off a ladder, hitting his head on the concrete about 10 years ago. In the fall from ladder, he a lso sustained a significant back injury requiring surgery. He has had extensive workup with Neurolog y and Neuropsychology in the last 3 months that has found no specific pattern to his cognitive dysfun ction and no evidence of CTE. SOCIAL HISTORY: The patient is , lives in [place] in a home with his . 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 She is the primary breadwinner, though the patient does receive disability income. The patient has a history of alcoholism and had been sober for 10 y ears until relapse approximately 2 years ago. Since that time, he has had about 5 relapses. 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 FAMILY HISTORY: Significant for bipolar disorder and similar disability in his twin sister. ADMITTING LABORATORY: Labs were drawn at outlying emergency department and reviewed by phone. I do not have a copy of those in front of me at this time. MENTAL STATUS EXAMINATION: A rather deandra-appearing male. He is tremulous, anxious and struggles maintaining consistent eye contact. He appears anxious, though this is influenced by his t remor. His affect is otherwise blunted to flat. His mood is described as "messed up." His thought process is abbreviated with significant problems with attention, concentration and recall. He attemp ts to answer questions, though, but appears to get stuck, not only on the language, but also in possi ble thought-blocking or derailment. His thought process is abbreviated due to this process. His tho ught content reveals no evidence of acute psychosis, though he has recently apparently had some paran oid thinking and also some possible grandiose fantasies. He is alert and oriented to person, place, time and situation, and his sensorium is clear. There is no evidence of delirium. His intellect is above average as evidenced by his educational and occupational history, fund of knowledge and vocabul catina. He denies any current thoughts of suicide, though states that when he was at home, he was "very suicidal." His insight and judgment appear to be fair. IMPRESSION: 1. Bipolar 1 disorder, most recent episode depressed, severe, with possible psychosis, chronic illne ss, recurrent illness. 2. Alcohol use disorder, moderate to severe. 3. Tardive dyskinesia. 4. Cognitive dysfunction, likely related in part to ECT, though the overall picture is unclear. The patient is a 47-year-old male with a history of bipolar disorder with chronic depressio n. He has responded well to ECT over time, though recently has found himself in a real decline. The previous hospitalizations have been focused on doing more acute treatments in order to boost his moo d and decrease his suicidality. At this time, I believe the suicidality is as much rooted in his bipin oing severe cognitive dysfunction. I do not want to do any increased amount of ECT. In fact, I woul d recommend a hiatus from ECT until his cognition reasonably recovers. I discussed this with the yusuf pace and his and they stated they were comfortable proceeding, though are concerned about the po ssible implication for worsening mood. PLAN: 1. Admit to [facility] inpatient unit on an M1 hold. 2. Will decrease Seroquel from 800 to 600 mg and attempt to taper off to see if this affects his tar dive dyskinesia symptoms. 3. Will hold ECT for now. 4. Will consider alternative medication strategies, though he has responded terribly to all previous trials except [place]. 5. Will monitor closely for any attempts at self-harm and place on suicide precautions. 6. Will engage in individual group and milieu psychotherapies and serial clinical interviews to hope fully further the therapeutic alliance and provide better understanding to his current situation. Estimated length of stay is 5 to 7 days. /[id number]/MODL
[2018-04-11] MEDS: PRAZOSIN HCL 5 MG CAP PO SCH (20:06)
[2018-04-11] MEDS: QUEtiapine FUMARATE 200 MG TAB PO SCH (20:07)
[2018-04-11] MEDS ORDERED: QUEtiapine FUMARATE 200 MG TAB PO SCH (21:00)
[2018-04-11] MEDS ORDERED: LITHIUM CARBONATE ER 300 MG TAB PO SCH (21:00)
[2018-04-12] MEDS ORDERED: LEVOTHYROXINE 112 MCG TAB PO SCH (06:00)
[2018-04-12] MEDS: LEVOTHYROXINE 112 MCG TAB PO SCH (12:05)
--- NOTE | 2018-04-12 12:39 | ASMTCMCOM ---
CM Note CM Note Notes: CC checked in with ct. who said that he is doing fine. Ct. appeared to have difficulty answering questions and had delayed responds. He reported that his is planning on visiting him over the weekend. Date Signed: 04/12/2018 12:39 PM Electronically Signed By:Sarah Smith
--- NOTE | 2018-04-12 15:01 | SOAPPROG ---
SOAP Progress Note Assessment/Plan: Assessment: Plan: 04/12/18 15:03 Cognition: current presentation is unclear. He appears at some level to be delirious. Vital signs are stable and there is no hallucinosis. It is possible that he is drinking more than he has let on and is in some type of protracted, low-level withdrawal. If so, there is also a possibility of WK syndrome (unlikely). The pattern of cognitive dysfunction is more similar to delirium than it is to that caused by long-term ECT given on a 7-10 day interval. Will start lorazepam and thiamine, d/c lithium as it has not been particularly helpful and may be worsening cognition/delirium and tremor, hold on SQL at 600mg for now, consider addition of memantine and send thyroid panel, Vitamin D, Vitamin B12 and CDTA (send out.) Subjective: Pt seen, discussed with staff. Reports feeling "not too good." More interactive on unit, though continues to struggle to communicate meaningfully with others. He demonstrates high level of anxiety with internal preoccupation and poor recall. He is easily distracted and appears confused at times. He demonstrates word-finding errors. Objective: Vital Signs Temp Pulse Resp BP Pulse Ox 36.4 C 90 20 127/74 H 97 04/12/18 06:00 04/12/18 06:00 04/12/18 06:00 04/12/18 06:00 04/12/18 06:00 MSE: Poorly groomed, moderately agitated. Paces and then abruptly engages me, but cannot remember what he wanted to ask. Affect is constricted, stable. Mood is "not good." TP is abbreviated with possible blocking or derailment. TC reveals no overt psychosis. A&Ox4. A/C are poor. - Time Spent With Patient Time Spent With Patient: 35" ICD10 Worksheet Patient Problems: Problems Problem Status Onset Bipolar 1 disorder, depressed, severe Acute
[2018-04-12] MEDS: LORazepam 1 MG TAB PO SCH ×2 (16:31→20:35)
[2018-04-12] MEDS: THIAMINE HCL 200 MG/2 ML VIAL IM SCH (20:09)
[2018-04-12] MEDS: PRAZOSIN HCL 5 MG CAP PO SCH (20:35)
[2018-04-12] MEDS: QUEtiapine FUMARATE 200 MG TAB PO SCH (20:35)
[2018-04-13] MEDS: LEVOTHYROXINE 112 MCG TAB PO SCH (10:56)
[2018-04-13] MEDS: LORazepam 1 MG TAB PO SCH ×3 (11:03→21:17)
[2018-04-13] MEDS: THIAMINE HCL 200 MG/2 ML VIAL IM SCH (11:23)
[2018-04-13] MEDS: LORazepam 0.5 MG TAB PO PRN (12:05)
--- NOTE | 2018-04-13 14:19 | ASMTCMCOM ---
CM Note CM Note Notes: Pt. report feeling "off", but struggled to elaborate. Pt. stated he was having trouble tracking. Pt. stated he "slept okay". Pt. reports eating well. Pt. stated he has attending groups, adding "one or two were good". Pt. was "not sure" if he was experiencing any issues with his medications. When asked about SI and HI, pt. stated "little bit", "other people" adding no one specific. RN and MD notified. Pt. denied AVH and paranoia. Pt. asked CC when his would be visiting. Pt. presents as alert, thought blocking, delayed, cooperative and trembling. Staff report pt. sleeping 12 hours and being medication compliant. Date Signed: 04/13/2018 02:19 PM Electronically Signed By:Shayna Rodriguez
--- NOTE | 2018-04-13 15:46 | SOAPPROG ---
SOAP Progress Note Assessment/Plan: Assessment: Most recent note per Dr. Quinonez: 04/12/18 15:03 Cognition: current presentation is unclear. He appears at some level to be delirious. Vital signs are stable and there is no hallucinosis. It is possible that he is drinking more than he has let on and is in some type of protracted, low-level withdrawal. If so, there is also a possibility of WK syndrome (unlikely). The pattern of cognitive dysfunction is more similar to delirium than it is to that caused by long-term ECT given on a 7-10 day interval. Will start lorazepam and thiamine, d/c lithium as it has not been particularly helpful and may be worsening cognition/delirium and tremor, hold on SQL at 600mg for now, consider addition of memantine and send thyroid panel, Vitamin D, Vitamin B12 and CDTA (send out.) Subjective: Pt seen, discussed with staff. Reports feeling "not too good." More interactive on unit, though continues to struggle to communicate meaningfully with others. He demonstrates high level of anxiety with internal preoccupation and poor recall. He is easily distracted and appears confused at times. He demonstrates word-finding errors. Plan: 04/13/18 15:44 1. Patient presents confused and disoriented today, consistent with Dr. Quinonez' s report of his mental status on day of admission. 2. Patient having difficult time engaging with staff, peers and participating in groups d/t AMS. 3. Vit B12 and thyroid panel essentially WNL (slightly low free T3). 4. Vit D pending 5. Continue with treatment plan. Dr. Quinonez d/c'd lithium and lowered Seroquel. Continue Ativan for withdrawal related sxs, including possible delirium. Thiamine to prevent encephalopathy. 6. Hold ECT for now pending clearing of mental confusion. 7. No med changes. Subjective: Patient sitting in front of TV, but not paying attention. He tells that he feels "off" but is not able to explain what her means. After a long pause when patient doesn't complete his thought, he finally says, "I don't know how to explain it." Patient is not oriented to place, time or situation. He present confused and forgetful. He asked RN earlier "is my coming today?" He couldn 't remember what they talked about yesterday. He asked MD for directions to his room, and wasn't sure which door was his. MD had to point out there was a sign on it that read, "[facility]." Patient is eating 75-100% of meals and slept 8 hrs last night. He denies any AH/VH, VSS. He denies N/V, sweating, anxiety. He does have bilateral tremor. Objective: Vital Signs Temp Pulse Resp BP Pulse Ox 36.4 C 107 H 16 130/84 H 99 04/13/18 12:02 04/13/18 12:02 04/13/18 12:02 04/13/18 12:02 04/13/18 12:02 MSE: Affect: Flat Mood: "Off" TP: Thought blocking, latency TC: Denies any SI /HI, paucity of speech Perception: Denies any AH/VH Insight/Judgment: Impaired d/t confusion - Time Spent With Patient Time Spent With Patient: 25" - Pending Discharge Pending Discharge Within 24 Hours: No Pending Discharge Within 48 Hours: No ICD10 Worksheet Patient Problems: Problems Problem Status Onset Bipolar 1 disorder, depressed, severe Acute
[2018-04-13] MEDS: ACETAMINOPHEN 325 MG TAB PO PRN (16:46)
[2018-04-13] MEDS: PRAZOSIN HCL 5 MG CAP PO SCH (21:17)
[2018-04-13] MEDS: QUEtiapine FUMARATE 200 MG TAB PO SCH (21:17)
[2018-04-14] MEDS: LEVOTHYROXINE 112 MCG TAB PO SCH (08:46)
[2018-04-14] MEDS: LORazepam 1 MG TAB PO SCH ×3 (08:46→20:53)
[2018-04-14] MEDS: ACETAMINOPHEN 325 MG TAB PO PRN ×2 (08:47→16:35)
[2018-04-14] MEDS: THIAMINE HCL 200 MG/2 ML VIAL IM SCH (08:49)
[2018-04-14] MEDS: LORazepam 0.5 MG TAB PO PRN (10:10)
--- NOTE | 2018-04-14 15:16 | SOAPPROG ---
SOAP Progress Note Assessment/Plan: Assessment: Most recent note per Dr. Quinonez: 04/12/18 15:03 Cognition: current presentation is unclear. He appears at some level to be delirious. Vital signs are stable and there is no hallucinosis. It is possible that he is drinking more than he has let on and is in some type of protracted, low-level withdrawal. If so, there is also a possibility of WK syndrome (unlikely). The pattern of cognitive dysfunction is more similar to delirium than it is to that caused by long-term ECT given on a 7-10 day interval. Will start lorazepam and thiamine, d/c lithium as it has not been particularly helpful and may be worsening cognition/delirium and tremor, hold on SQL at 600mg for now, consider addition of memantine and send thyroid panel, Vitamin D, Vitamin B12 and CDTA (send out.) Subjective: Pt seen, discussed with staff. Reports feeling "not too good." More interactive on unit, though continues to struggle to communicate meaningfully with others. He demonstrates high level of anxiety with internal preoccupation and poor recall. He is easily distracted and appears confused at times. He demonstrates word-finding errors. Plan: 04/13/18 15:44 1. Patient presents confused and disoriented today, consistent with Dr. Quinonez' s report of his mental status on day of admission. 2. Patient having difficult time engaging with staff, peers and participating in groups d/t AMS. 3. Vit B12 and thyroid panel essentially WNL (slightly low free T3). 4. Vit D pending 5. Continue with treatment plan. Dr. Quinonez d/c'd lithium and lowered Seroquel. Continue Ativan for withdrawal related sxs, including possible delirium. Thiamine to prevent encephalopathy. 6. Hold ECT for now pending clearing of mental confusion. 7. No med changes. 04/14/18 15:11 1. Patient has periods of increased lucidity and coherence. Other times he is still confused and has difficulty answering questions. 2. reports patient has been taking Paxil 40mg daily at home. She says he has been compliant with meds, but has missed several doses since admission. explained there can be some w/d sxs associated with abrupt discontinuation of SSRI, though not all patients have them. Patient says he would like to continue on this medication until he speaks to Dr. Quinonez tomorrow. MD will order outpatient dose for tomorrow AM. 3. Patient does have tremor and increased anxiety, but vital signs are stable this AM. Yesterday, patient had slightly elevated BP and tachycardia, but both are WNL this AM. His last drink was on 04/09/18, so it's unlikely patient is experiencing w/d, but will continue Ativan 1mg TID to address anxiety and possible w/d sxs. 4. Patient requested stool softener d/t issues with impaction in past. 5. No further med changes. Subjective: Patient has appeared more alert and oriented at times today. This AM, he was carrying on coherent conversation with staff about his pet cat and dog and how well they got along. This afternoon, MD noticed patient was having word finding difficulty and could not answer questions. MD asked about taking Paxil at home and patient couldn't remember if he did or what time of day he took it. Patient' s confirmed patient had been taking Paxil 40mg qAM. She said the only doses he's missed were since being admitted to hospital. Patient has appeared more agitated and more easily frustrated today. He was watching the news on TV and became upset while listening to political commentary. Once he removed himself from TV area, he was able to calm down. Objective: Vital Signs Temp Pulse Resp BP Pulse Ox 37.0 C 75 14 103/70 97 04/13/18 16:49 04/14/18 06:00 04/14/18 06:00 04/14/18 06:00 04/14/18 06:00 MSE: Affect: Frustrated, calm and pleasant most of the time Mood: Irritable at times, "OK" most of the time TP: Disorganized, confused with brief periods of lucidity TC: Denies any SI/HI, but does have angry thoughts when frustrated by news on TV Insight/Judgment: Impaired - Time Spent With Patient Time Spent With Patient: 20" - Pending Discharge Pending Discharge Within 24 Hours: No Pending Discharge Within 48 Hours: No ICD10 Worksheet Patient Problems: Problems Problem Status Onset Bipolar 1 disorder, depressed, severe Acute
[2018-04-14] MEDS: PRAZOSIN HCL 5 MG CAP PO SCH (20:53)
[2018-04-14] MEDS: MELATONIN 3 MG TAB PO PRN (20:53)
[2018-04-14] MEDS: QUEtiapine FUMARATE 200 MG TAB PO SCH (20:54)
[2018-04-14] MEDS: SENNOSIDES/DOCUSATE SODIUM TAB PO SCH (20:54)
[2018-04-15] MEDS: THIAMINE HCL 200 MG/2 ML VIAL IM SCH (08:45)
[2018-04-15] MEDS: SENNOSIDES/DOCUSATE SODIUM TAB PO SCH ×2 (08:46→20:31)
[2018-04-15] MEDS: LORazepam 1 MG TAB PO SCH (08:46)
[2018-04-15] MEDS ORDERED: PARoxetine HCL 20 MG TAB PO SCH (09:00)
[2018-04-15] MEDS: LEVOTHYROXINE 112 MCG TAB PO SCH (10:43)
[2018-04-15] MEDS ORDERED: LORazepam 1 MG TAB PO SCH (12:06)
[2018-04-15] MEDS ORDERED: PRAZOSIN HCL 5 MG CAP PO SCH (12:06)
[2018-04-15] MEDS: ACETAMINOPHEN 325 MG TAB PO PRN (13:22)
--- NOTE | 2018-04-15 14:21 | ASMTCMCOM ---
CM Note CM Note Notes: Pt. reports feeling "okay". Pt. stated he slept "off and on", adding he had a "couple of bad dreams". Pt. reports eating well and attending groups. Pt. reports "no I don't think there's any" when asked about side effects from his medications. Pt. stated "in between" when asked about SI/HI. Pt. stated he will come to staff if he becomes upset or angry. Pt. stated he is not having ECT yet. Pt. stated he will "try to roll with whatever he [MD] wants". Pt. stated he is "not normally a rain who starts fights". Pt. denied SI, HI, AVH and paranoia. Pt. presents as alert, tense, thought blocking, delayed at times, and cooperative. Staff report pt. sleeping 8.5 hours and being medication compliant. [facility] stated to staff, pt. seems not as tense, but still confused and disorganized. Date Signed: 04/14/2018 02:24 PM Electronically Signed By:Shayna Rodriguez
--- NOTE | 2018-04-15 14:23 | ASMTCMCOM ---
CM Note CM Note Notes: Pt. reports feeling "okay". Pt. stated he slept "off and on" adding dreams kept him up a bit. Pt. reports eating well and attending groups. Pt. reports no issues with his current medications. Pt. reports "not really" when ask about SI/HI. Pt. stated he had some SI/HI thoughts last night. Pt. reports no issues while on the unit. Pt. denied SI, HI, AVH and paranoia. Pt. presents as semi-alert, eyes closed, calm, thought blocking, and cooperative. Staff report pt. sleeping 9 hours and being medication compliant. Date Signed: 04/15/2018 11:28 AM Electronically Signed By:Shayna Rodriguez
[2018-04-15] MEDS: QUEtiapine FUMARATE 50 MG TAB PO PRN (14:48)
--- NOTE | 2018-04-15 15:22 | SOAPPROG ---
CAREN Progress Note Assessment/Plan: Assessment: Plan: 04/12/18 15:03 Cognition: current presentation is unclear. He appears at some level to be delirious. Vital signs are stable and there is no hallucinosis. It is possible that he is drinking more than he has let on and is in some type of protracted, low-level withdrawal. If so, there is also a possibility of WK syndrome (unlikely). The pattern of cognitive dysfunction is more similar to delirium than it is to that caused by long-term ECT given on a 7-10 day interval. Will start lorazepam and thiamine, d/c lithium as it has not been particularly helpful and may be worsening cognition/delirium and tremor, hold on SQL at 600mg for now, consider addition of memantine and send thyroid panel, Vitamin D, Vitamin B12 and CDTA (send out.) 04/15/18 15:23 Doing better overall. Will CCM with following adjustments: decrease Paxil to 20mg, decrease prazosin to 8mg (on the way lower), decrease scheduled HS SQL to 600mg and add 50mg PRN dose. Await labs. Subjective: Pt seen, discussed with staff, chart reviewed. Weekend reportedly went well. He was more irritable yesterday, but clearer cognitively. Continues to sleep adequately. Tolerating med changes well. Dr. Fowler restarted Paxil due to concern for discontinuation syndrome. Pt is better able to converse today. Writes me a letter requesting ECT and to shave. I reviewed with him my plan to hold ECT for now to allow maximum cognitive recovery. He is understanding of this. Also agrees to ongoing medication adjustments. Objective: Vital Signs Temp Pulse Resp BP Pulse Ox 37.0 C 70 14 109/75 97 04/13/18 16:49 04/15/18 06:00 04/15/18 06:00 04/15/18 06:00 04/15/18 06:00 MSE: Better groomed, interactive. Less delayed. Affect is blunted to flat. Mood is "bad." TP is abbreviate, though more fluent. TC reveals some ongoing perseverative worries with an almost paranoid tone. He asks, "Should I get out of here?" and "Do I belong here any more?" He also experienced some aggressive impulses towards others this weekend. Short term and working memories are improved, more fluent. Fewer problems with recall. A&Ox4. A/C appear better. SI continues. - Time Spent With Patient Time Spent With Patient: 25" ICD10 Worksheet Patient Problems: Problems Problem Status Onset Bipolar 1 disorder, depressed, severe Acute
[2018-04-15] MEDS: LORazepam 0.5 MG TAB PO SCH ×2 (15:42→20:32)
[2018-04-15] MEDS: PRAZOSIN HCL 1 MG CAP PO SCH (20:31)
[2018-04-15] MEDS: PRAZOSIN HCL 5 MG CAP PO SCH (20:31)
[2018-04-15] MEDS: QUEtiapine FUMARATE 200 MG TAB PO SCH (20:32)
[2018-04-16] MEDS: PARoxetine HCL 20 MG TAB PO SCH (08:57)
[2018-04-16] MEDS: LORazepam 0.5 MG TAB PO SCH ×3 (08:57→20:11)
[2018-04-16] MEDS: SENNOSIDES/DOCUSATE SODIUM TAB PO SCH ×2 (08:57→20:12)
[2018-04-16] MEDS: LEVOTHYROXINE 112 MCG TAB PO SCH (10:56)
[2018-04-16] MEDS: PRAZOSIN HCL 5 MG CAP PO SCH (20:12)
[2018-04-16] MEDS: PRAZOSIN HCL 1 MG CAP PO SCH (20:12)
[2018-04-16] MEDS: QUEtiapine FUMARATE 200 MG TAB PO SCH (20:12)
[2018-04-17] MEDS: PARoxetine HCL 20 MG TAB PO SCH (08:37)
[2018-04-17] MEDS: LEVOTHYROXINE 112 MCG TAB PO SCH (08:37)
[2018-04-17] MEDS: SENNOSIDES/DOCUSATE SODIUM TAB PO SCH ×2 (08:37→19:59)
[2018-04-17] MEDS: LORazepam 0.5 MG TAB PO SCH (08:37)
--- NOTE | 2018-04-17 12:53 | ASMTCMCOM ---
CM Note CM Note Notes: Pt. reports feeling "okay". Pt. stated he slept "poorly" adding he had "a lot of bad dreams". Pt. reports eating well and attending groups. Pt. report "nothing more than usual" with his medications. Pt. stated his time on the unit is going "pretty good". Pt. report no issues while on the unit. Pt. denied SI, HI, AVH and paranoia. Pt. presents as alert, somewhat delayed in his responses, good eye contact, possibly some thought blocking, and cooperative. Staff report pt. sleeping 10.5 hours and being medication compliant. Date Signed: 04/17/2018 12:52 PM Electronically Signed By:Shayna Rodriguez
--- NOTE | 2018-04-17 14:35 | SOAPPROG ---
SOAP Progress Note Assessment/Plan: Assessment: Plan: 04/12/18 15:03 Cognition: current presentation is unclear. He appears at some level to be delirious. Vital signs are stable and there is no hallucinosis. It is possible that he is drinking more than he has let on and is in some type of protracted, low-level withdrawal. If so, there is also a possibility of WK syndrome (unlikely). The pattern of cognitive dysfunction is more similar to delirium than it is to that caused by long-term ECT given on a 7-10 day interval. Will start lorazepam and thiamine, d/c lithium as it has not been particularly helpful and may be worsening cognition/delirium and tremor, hold on SQL at 600mg for now, consider addition of memantine and send thyroid panel, Vitamin D, Vitamin B12 and CDTA (send out.) 04/15/18 15:23 Doing better overall. Will CCM with following adjustments: decrease Paxil to 20mg, decrease prazosin to 8mg (on the way lower), decrease scheduled HS SQL to 600mg and add 50mg PRN dose. Await labs. 04/17/18 14:39 No change today. Cognitive issues and TD unchanged. Sleep and behaviors stable despite med reductions. CCM, though decrease Paxil to 20mg to decrease influence on tremors and mood instability. Subjective: LATE ENTRY FOR 04/16/18. Pt seen, discussed with staff, interviewed in Treatment Team meeting. He reports feeling "messed up." Discussed pattern of increased agitation and irritability in the afternoons. He is unaware of this. He agrees to talk to staff if he feels this way again. Notes no problems from med changes at this point. Cognition remains poor with disorganized thoughts and continued poor recall. Objective: Vital Signs Temp Pulse Resp BP Pulse Ox 36.8 C 83 20 129/84 H 97 04/17/18 06:00 04/17/18 06:00 04/17/18 06:00 04/17/18 06:00 04/17/18 06:00 MSE: Marginally groomed, tense, guarded. Abnormal mouth movements and jaw clenching noted as well as bilateral hand tremors, R>L. Affect is restricted, tense. Mood is "not good." TP disorganized. TC reveals no overt psychosis. SI persists. - Time Spent With Patient Time Spent With Patient: 25" ICD10 Worksheet Patient Problems: Problems Problem Status Onset Bipolar 1 disorder, depressed, severe Acute
--- NOTE | 2018-04-17 14:48 | SOAPPROG ---
SOAP Progress Note Assessment/Plan: Assessment: Plan: 04/12/18 15:03 Cognition: current presentation is unclear. He appears at some level to be delirious. Vital signs are stable and there is no hallucinosis. It is possible that he is drinking more than he has let on and is in some type of protracted, low-level withdrawal. If so, there is also a possibility of WK syndrome (unlikely). The pattern of cognitive dysfunction is more similar to delirium than it is to that caused by long-term ECT given on a 7-10 day interval. Will start lorazepam and thiamine, d/c lithium as it has not been particularly helpful and may be worsening cognition/delirium and tremor, hold on SQL at 600mg for now, consider addition of memantine and send thyroid panel, Vitamin D, Vitamin B12 and CDTA (send out.) 04/15/18 15:23 Doing better overall. Will CCM with following adjustments: decrease Paxil to 20mg, decrease prazosin to 8mg (on the way lower), decrease scheduled HS SQL to 600mg and add 50mg PRN dose. Await labs. 04/17/18 14:39 No change today. Cognitive issues and TD unchanged. Sleep and behaviors stable despite med reductions. CCM, though decrease Paxil to 20mg to decrease influence on tremors and mood instability. 04/17/18 14:50 Improved today. Clearly more attentive. Unclear whether sleep has changed. He tends to overreport nightmares. Will continue med tapers with decrease of prazosin to 6mg. Will monitor sleep. Will d/c scheduled lorazepam as well and restart PRN. Subjective: Pt seen, discussed with staff. Reports feeling "pretty bad" but then states his mood is "better." C/o poor sleep with increased nightmares, though slept > 9 hours. No afternoon irritability noted yesterday. More spontaneous and appropriately interactive today. Attending groups. Tolerating med changes well. Objective: Vital Signs Temp Pulse Resp BP Pulse Ox 36.8 C 83 20 129/84 H 97 04/17/18 06:00 04/17/18 06:00 04/17/18 06:00 04/17/18 06:00 04/17/18 06:00 MSE: Better groomed, more interactive with better eye contact. Jaw clenching continues with teeth grinding, tremors are less noticeable. Affect is restricted, stable. Mood is "better." TP linear, though abbreviated with continued derailment. TC reveals no paranoia. SI "less." - Time Spent With Patient Time Spent With Patient: 25" ICD10 Worksheet Patient Problems: Problems Problem Status Onset Bipolar 1 disorder, depressed, severe Acute
[2018-04-17] MEDS: QUEtiapine FUMARATE 50 MG TAB PO PRN (16:10)
[2018-04-17] MEDS: LORazepam 0.5 MG TAB PO PRN (16:11)
[2018-04-17] MEDS: PRAZOSIN HCL 5 MG CAP PO SCH ×2 (19:59→20:02)
[2018-04-17] MEDS: MELATONIN 3 MG TAB PO PRN (19:59)
[2018-04-17] MEDS: QUEtiapine FUMARATE 200 MG TAB PO SCH (19:59)
[2018-04-17] MEDS: PRAZOSIN HCL 1 MG CAP PO SCH (20:04)
[2018-04-18] MEDS: LEVOTHYROXINE 112 MCG TAB PO SCH (08:38)
[2018-04-18] MEDS: SENNOSIDES/DOCUSATE SODIUM TAB PO SCH ×2 (08:38→20:33)
[2018-04-18] MEDS: PARoxetine HCL 20 MG TAB PO SCH (08:38)
[2018-04-18] MEDS: ACETAMINOPHEN 325 MG TAB PO PRN (08:45)
[2018-04-18] MEDS: LORazepam 0.5 MG TAB PO PRN ×2 (12:52→18:58)
--- NOTE | 2018-04-18 13:37 | ASMTCMCOM ---
CM Note CM Note Notes: According to [facility] staff, the patient is completing 100% of his meals. He slept "9" hours overnight. He presented as agitated and tense yesterday evening, 04/17/18. This underwriter mortgage loan attempted to check-in and the patient denied support. Date Signed: 04/18/2018 01:36 PM Electronically Signed By:Keiko Ortiz
[2018-04-18] MEDS: IBUPROFEN 600 MG TAB PO PRN ×2 (13:53→20:34)
--- NOTE | 2018-04-18 16:29 | SOAPPROG ---
CAREN Progress Note Assessment/Plan: Assessment: Plan: 04/12/18 15:03 Cognition: current presentation is unclear. He appears at some level to be delirious. Vital signs are stable and there is no hallucinosis. It is possible that he is drinking more than he has let on and is in some type of protracted, low-level withdrawal. If so, there is also a possibility of WK syndrome (unlikely). The pattern of cognitive dysfunction is more similar to delirium than it is to that caused by long-term ECT given on a 7-10 day interval. Will start lorazepam and thiamine, d/c lithium as it has not been particularly helpful and may be worsening cognition/delirium and tremor, hold on SQL at 600mg for now, consider addition of memantine and send thyroid panel, Vitamin D, Vitamin B12 and CDTA (send out.) 04/15/18 15:23 Doing better overall. Will CCM with following adjustments: decrease Paxil to 20mg, decrease prazosin to 8mg (on the way lower), decrease scheduled HS SQL to 600mg and add 50mg PRN dose. Await labs. 04/17/18 14:39 No change today. Cognitive issues and TD unchanged. Sleep and behaviors stable despite med reductions. CCM, though decrease Paxil to 20mg to decrease influence on tremors and mood instability. 04/17/18 14:50 Improved today. Clearly more attentive. Unclear whether sleep has changed. He tends to overreport nightmares. Will continue med tapers with decrease of prazosin to 6mg. Will monitor sleep. Will d/c scheduled lorazepam as well and restart PRN. 04/18/18 16:29 Continued gradual improvement. CCM. Subjective: Pt seen, discussed with staff. Reports feeling "a little better" today. Affect continues to improve and he is calmer. Cognition remains impaired, but more fluent with less delay and derailment. Abnormal, involuntary movements less prominent and less intrusive. Objective: Vital Signs Temp Pulse Resp BP Pulse Ox 36.5 C 92 20 103/67 97 04/18/18 06:00 04/18/18 06:00 04/18/18 06:00 04/18/18 06:00 04/18/18 06:00 MSE: Calmer, less tremulous. No grimacing or teeth grinding. Affect remains restricted, but overall better modulated. Mood is "better." TP linear, more fluent. TC reveals no evidence of psychosis. SI "gone." Cognition improved with less delay/derailment, fewer problems with recall. Struggles to remember word for nightmares, though responded immediately to cuing of "bad dreams." - Time Spent With Patient Time Spent With Patient: 25" ICD10 Worksheet Patient Problems: Problems Problem Status Onset Bipolar 1 disorder, depressed, severe Acute
[2018-04-18] MEDS: PRAZOSIN HCL 5 MG CAP PO SCH (20:33)
[2018-04-18] MEDS: MELATONIN 3 MG TAB PO PRN (20:33)
[2018-04-18] MEDS: QUEtiapine FUMARATE 200 MG TAB PO SCH (20:34)
[2018-04-18] MEDS: PRAZOSIN HCL 1 MG CAP PO SCH (20:34)
[2018-04-19] MEDS: SENNOSIDES/DOCUSATE SODIUM TAB PO SCH ×2 (08:30→19:14)
[2018-04-19] MEDS: PARoxetine HCL 20 MG TAB PO SCH (08:30)
[2018-04-19] MEDS: LEVOTHYROXINE 112 MCG TAB PO SCH (08:31)
[2018-04-19] MEDS: LORazepam 0.5 MG TAB PO PRN ×3 (09:03→16:33)
[2018-04-19] MEDS: QUEtiapine FUMARATE 50 MG TAB PO PRN ×2 (12:00→17:44)
[2018-04-19] MEDS: HYDROCODONE/APAP 5/325 TAB PO PRN (13:11)
[2018-04-19] MEDS: IBUPROFEN 600 MG TAB PO PRN (13:46)
--- NOTE | 2018-04-19 14:52 | SOAPPROG ---
SOAP Progress Note Assessment/Plan: Assessment: Plan: 04/12/18 15:03 Cognition: current presentation is unclear. He appears at some level to be delirious. Vital signs are stable and there is no hallucinosis. It is possible that he is drinking more than he has let on and is in some type of protracted, low-level withdrawal. If so, there is also a possibility of WK syndrome (unlikely). The pattern of cognitive dysfunction is more similar to delirium than it is to that caused by long-term ECT given on a 7-10 day interval. Will start lorazepam and thiamine, d/c lithium as it has not been particularly helpful and may be worsening cognition/delirium and tremor, hold on SQL at 600mg for now, consider addition of memantine and send thyroid panel, Vitamin D, Vitamin B12 and CDTA (send out.) 04/15/18 15:23 Doing better overall. Will CCM with following adjustments: decrease Paxil to 20mg, decrease prazosin to 8mg (on the way lower), decrease scheduled HS SQL to 600mg and add 50mg PRN dose. Await labs. 04/17/18 14:39 No change today. Cognitive issues and TD unchanged. Sleep and behaviors stable despite med reductions. CCM, though decrease Paxil to 20mg to decrease influence on tremors and mood instability. 04/17/18 14:50 Improved today. Clearly more attentive. Unclear whether sleep has changed. He tends to overreport nightmares. Will continue med tapers with decrease of prazosin to 6mg. Will monitor sleep. Will d/c scheduled lorazepam as well and restart PRN. 04/18/18 16:29 Continued gradual improvement. CCM. 04/19/18 14:58 Continued difficult course. Overall improved, but remains agitated and confused. Will stay the current course for now. Want to deemphasize benzo's in general and work on helping patient focus or reorient when he is feeling frustrated or agitated. Subjective: Pt seen, discussed with staff. Up and about the unit. Participating in groups. States he feels "bad" at one point, but then later is upbeat when listening to music by [employer]. He continues to exhibit intermittent agitation when he approaches the nurses' station to request PRN's for anxiety or back pain. It seems like he does this as a kind of stereotypy, i.e. these c/o's are what comes to mind when he finds himself trying to interact with the nurses. He is not helped by the PRN's because they are likely misdirected, especially in regards to his c/o "anxiety". This seems more like frustration/agitation. He continues to eat and sleep well. No behavioral issues. He does tell me that he believes someone stole his "[employer] plaque" out of his room. Unable to explain what this is such that I could understand it. Objective: Vital Signs Temp Pulse Resp BP Pulse Ox 36.3 C 102 H 20 147/66 H 97 04/19/18 06:00 04/19/18 06:00 04/19/18 06:00 04/19/18 06:00 04/19/18 06:00 MSE: Marginally groomed, interactive. Moderately agitated, seeming not to know why he is standing at the nurses' station waiting to talk to the nurse. States, "Someone is stealing from me. They took my [employer] plaque." He then points to his pointer finger on his left hand next to where he is wearing his [employer] ring and draws a large rectangle in the air above his hand. His TP is linear at times, though becomes disorganized. TC reveals possible paranoia. - Time Spent With Patient Time Spent With Patient: 15" ICD10 Worksheet Patient Problems: Problems Problem Status Onset Bipolar 1 disorder, depressed, severe Acute
[2018-04-19] MEDS: PRAZOSIN HCL 1 MG CAP PO SCH (19:13)
[2018-04-19] MEDS: QUEtiapine FUMARATE 200 MG TAB PO SCH (19:13)
[2018-04-19] MEDS: MELATONIN 3 MG TAB PO PRN (19:14)
[2018-04-19] MEDS: PRAZOSIN HCL 5 MG CAP PO SCH (19:14)
[2018-04-20] MEDS: SENNOSIDES/DOCUSATE SODIUM TAB PO SCH ×2 (08:02→20:26)
[2018-04-20] MEDS: IBUPROFEN 600 MG TAB PO PRN (08:02)
[2018-04-20] MEDS: PARoxetine HCL 20 MG TAB PO SCH (08:03)
[2018-04-20] MEDS: LEVOTHYROXINE 112 MCG TAB PO SCH (08:05)
[2018-04-20] MEDS: LORazepam 0.5 MG TAB PO PRN ×3 (08:30→15:15)
[2018-04-20] MEDS: QUEtiapine FUMARATE 50 MG TAB PO PRN ×2 (13:25→17:35)
--- NOTE | 2018-04-20 17:21 | SOAPPROG ---
CAREN Progress Note Assessment/Plan: Assessment: Most recent note per Dr. Quinonez: 04/15/18 15:23 Doing better overall. Will CCM with following adjustments: decrease Paxil to 20mg, decrease prazosin to 8mg (on the way lower), decrease scheduled HS SQL to 600mg and add 50mg PRN dose. Await labs. 04/17/18 14:39 No change today. Cognitive issues and TD unchanged. Sleep and behaviors stable despite med reductions. CCM, though decrease Paxil to 20mg to decrease influence on tremors and mood instability. 04/17/18 14:50 Improved today. Clearly more attentive. Unclear whether sleep has changed. He tends to overreport nightmares. Will continue med tapers with decrease of prazosin to 6mg. Will monitor sleep. Will d/c scheduled lorazepam as well and restart PRN. 04/18/18 16:29 Continued gradual improvement. CCM. 04/19/18 14:58 Continued difficult course. Overall improved, but remains agitated and confused. Will stay the current course for now. Want to deemphasize benzo's in general and work on helping patient focus or reorient when he is feeling frustrated or agitated. PLAN: 04/20/18 17:18 1. Patient continues to c/o anxiety and frustration. Using a lot of PRN meds, including Ativan and Seroquel. Staff try to direct patient to use non- pharmacologic interventions to address anxiety. The only technique he finds effective is watching TV. 2. Patient told RN this AM, "Right now I don't feel like taking any meds." Patient was frustrated b/c he didn't feel like he was getting any better since admission. However, late when MD met with patient, he said things have improved since MD saw him last weekend. However, he couldn't explain what specific things had gotten better. 3. Patient working on increasing number of coping tools for when he's frustrated and anxious. 4. ST Subjective: Sitting in chair in front of TV. Patient continues to c/o anxiety and frustration. Using a lot of PRN meds, including Ativan and Seroquel. Staff try to direct patient to use non-pharmacologic interventions to address anxiety. The only technique he finds effective is watching TV. Patient told RN this AM, "Right now I don't feel like taking any meds." Patient was frustrated b/c he didn't feel like he was getting any better since admission. However, late when MD met with patient, he said things have improved since MD saw him last weekend. However, he couldn't explain what specific things had gotten better. Patient working on increasing number of coping tools for when he's frustrated and anxious. Objective: Vital Signs Temp Pulse Resp BP Pulse Ox 36.4 C 82 20 134/89 H 97 04/20/18 06:00 04/20/18 06:00 04/20/18 06:00 04/20/18 06:00 04/20/18 06:00 MSE: Affect: Irritable Mood: "Anxious" TP: Tangential TC: Paucity of detail, no SI/HI Insight/Judgment: Poor - Time Spent With Patient Time Spent With Patient: 15" - Pending Discharge Pending Discharge Within 24 Hours: No Pending Discharge Within 48 Hours: No ICD10 Worksheet Patient Problems: Problems Problem Status Onset Bipolar 1 disorder, depressed, severe Acute
[2018-04-20] MEDS: PRAZOSIN HCL 1 MG CAP PO SCH (20:26)
[2018-04-20] MEDS: PRAZOSIN HCL 5 MG CAP PO SCH (20:26)
[2018-04-20] MEDS: QUEtiapine FUMARATE 200 MG TAB PO SCH (20:26)
[2018-04-21] MEDS: SENNOSIDES/DOCUSATE SODIUM TAB PO SCH ×2 (08:37→20:18)
[2018-04-21] MEDS: IBUPROFEN 600 MG TAB PO PRN ×2 (08:37→17:51)
[2018-04-21] MEDS: PARoxetine HCL 20 MG TAB PO SCH (08:38)
[2018-04-21] MEDS: LEVOTHYROXINE 112 MCG TAB PO SCH (08:38)
--- NOTE | 2018-04-21 13:53 | ASMTCMCOM ---
CM Note CM Note Notes: According to [facility] staff, the patient continues to present with anxiety including "clenching his jaw and fists" when other patients are uncooperative. He reported that he was no longer going to take his medications, stating "I'm not going to take any of these; just get rid of them all." The patient was compliant with his AM doses of medication. The patient's tremulousness has decreased. The patient continues to employ distraction techniques when emotionally distressed including pacing and watching television. The patient is under talkative and endorsed paranoid ideation including that his peers are talking about him. Date Signed: 04/21/2018 01:53 PM Electronically Signed By:Keiko Ortiz
--- NOTE | 2018-04-21 17:16 | SOAPPROG ---
CAREN Progress Note Assessment/Plan: Assessment: Most recent note per Dr. Quinonez: 04/15/18 15:23 Doing better overall. Will CCM with following adjustments: decrease Paxil to 20mg, decrease prazosin to 8mg (on the way lower), decrease scheduled HS SQL to 600mg and add 50mg PRN dose. Await labs. 04/17/18 14:39 No change today. Cognitive issues and TD unchanged. Sleep and behaviors stable despite med reductions. CCM, though decrease Paxil to 20mg to decrease influence on tremors and mood instability. 04/17/18 14:50 Improved today. Clearly more attentive. Unclear whether sleep has changed. He tends to overreport nightmares. Will continue med tapers with decrease of prazosin to 6mg. Will monitor sleep. Will d/c scheduled lorazepam as well and restart PRN. 04/18/18 16:29 Continued gradual improvement. CCM. 04/19/18 14:58 Continued difficult course. Overall improved, but remains agitated and confused. Will stay the current course for now. Want to deemphasize benzo's in general and work on helping patient focus or reorient when he is feeling frustrated or agitated. PLAN: 04/20/18 17:18 1. Patient continues to c/o anxiety and frustration. Using a lot of PRN meds, including Ativan and Seroquel. Staff try to direct patient to use non- pharmacologic interventions to address anxiety. The only technique he finds effective is watching TV. 2. Patient told RN this AM, "Right now I don't feel like taking any meds." Patient was frustrated b/c he didn't feel like he was getting any better since admission. However, late when MD met with patient, he said things have improved since MD saw him last weekend. However, he couldn't explain what specific things had gotten better. 3. Patient working on increasing number of coping tools for when he's frustrated and anxious. 4. [facility] 04/21/18 17:11 1. MD spoke with patient and his . Patient's mood was brighter with , Gilda, present than when MD met with him alone. 2. thinks patient is "much better." She notes "he doesn't have any TD today." She also says his thoughts are "clearer" and he didn't have "any nightmares" last night. She reports he is not having any thought of hurting himself. 3. CCM 4. ST[facility] Subjective: MD talked to patient and his , Gilda. thinks patient is "much improved." She said she did not notice "any TD symptoms today." MD has not observed any signs of tardive dyskinesia in this patient. He has tremor in both hands, but no noticeable oral-buccal movements. MD frequently notices patient clenching his jaw when he is frustrated or upset. He occasionally wears his mouth guard during the day. This AM when patient asked to use phone to call his , staff had to assist him with dialling the number b/c he seem confused how to work the phone. reported to MD that she notices patient is "more clear" in his thoughts and is not having any thoughts of self-harm or suicide. She also reports patient "didn't have any nightmares" last night. Objective: Vital Signs Temp Pulse Resp BP Pulse Ox 36.4 C 80 20 127/79 H 98 04/21/18 06:00 04/21/18 06:00 04/21/18 06:00 04/21/18 06:00 04/21/18 06:00 MSE: Affect: Flat, brighter when visited Mood: "OK" reports "better" TP: Disorganized TC: Paucity of speech Insight/Judgment: Impaired - Time Spent With Patient Time Spent With Patient: 25" - Pending Discharge Pending Discharge Within 24 Hours: No Pending Discharge Within 48 Hours: No ICD10 Worksheet Patient Problems: Problems Problem Status Onset Bipolar 1 disorder, depressed, severe Acute
[2018-04-21] MEDS: QUEtiapine FUMARATE 50 MG TAB PO PRN (17:52)
[2018-04-21] MEDS: PRAZOSIN HCL 5 MG CAP PO SCH (20:17)
[2018-04-21] MEDS: QUEtiapine FUMARATE 200 MG TAB PO SCH (20:18)
[2018-04-21] MEDS: PRAZOSIN HCL 1 MG CAP PO SCH (20:18)
[2018-04-22] MEDS: SENNOSIDES/DOCUSATE SODIUM TAB PO SCH ×2 (08:43→20:28)
[2018-04-22] MEDS: IBUPROFEN 600 MG TAB PO PRN (08:43)
[2018-04-22] MEDS: PARoxetine HCL 20 MG TAB PO SCH (08:43)
[2018-04-22] MEDS: LEVOTHYROXINE 112 MCG TAB PO SCH (11:47)
[2018-04-22] MEDS: HYDROCODONE/APAP 5/325 TAB PO PRN ×2 (13:08→20:28)
--- NOTE | 2018-04-22 14:31 | SOAPPROG ---
CAREN Progress Note Assessment/Plan: Assessment: Plan: 04/12/18 15:03 Cognition: current presentation is unclear. He appears at some level to be delirious. Vital signs are stable and there is no hallucinosis. It is possible that he is drinking more than he has let on and is in some type of protracted, low-level withdrawal. If so, there is also a possibility of WK syndrome (unlikely). The pattern of cognitive dysfunction is more similar to delirium than it is to that caused by long-term ECT given on a 7-10 day interval. Will start lorazepam and thiamine, d/c lithium as it has not been particularly helpful and may be worsening cognition/delirium and tremor, hold on SQL at 600mg for now, consider addition of memantine and send thyroid panel, Vitamin D, Vitamin B12 and CDTA (send out.) 04/15/18 15:23 Doing better overall. Will CCM with following adjustments: decrease Paxil to 20mg, decrease prazosin to 8mg (on the way lower), decrease scheduled HS SQL to 600mg and add 50mg PRN dose. Await labs. 04/17/18 14:39 No change today. Cognitive issues and TD unchanged. Sleep and behaviors stable despite med reductions. CCM, though decrease Paxil to 20mg to decrease influence on tremors and mood instability. 04/17/18 14:50 Improved today. Clearly more attentive. Unclear whether sleep has changed. He tends to overreport nightmares. Will continue med tapers with decrease of prazosin to 6mg. Will monitor sleep. Will d/c scheduled lorazepam as well and restart PRN. 04/18/18 16:29 Continued gradual improvement. CCM. 04/19/18 14:58 Continued difficult course. Overall improved, but remains agitated and confused. Will stay the current course for now. Want to deemphasize benzo's in general and work on helping patient focus or reorient when he is feeling frustrated or agitated. 04/22/18 14:35 Cognition: much improved overall. Mood: stable despite medication tapers. TD: Much improved. Subjective: Pt seen, discussed with staff, chart reviewed. He reports feeling "a lot better " since last seen. RN notes an "up and down" course over the weekend with periods of increased lucidity interspersed with episodes of acute agitation and despair. He is more fluently interactive with me today. 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 Told RN in passing over the WE that he wanted to discontinue all of his medications. He then continued to take them. I reminded him today that we have drastically reduced his meds and will continue to do so. He is in agreement with this. Objective: Vital Signs Temp Pulse Resp BP Pulse Ox 36.4 C 99 20 113/72 98 04/22/18 06:00 04/22/18 06:00 04/22/18 06:00 04/22/18 06:00 04/22/18 06:00 MSE: Calm, coop. Appropriately interactive. Speech is more spontaneous and fluent. Affect is less restricted, calmer. Mood is "a lot better." TP is linear for longer periods, able to answer questions with less derailment. TC reveals no mention of paranoid thoughts though told RN that he felt like other patients may be stealing from him or don't like him. Denies current SI, but voiced active thoughts of , dying and suicide over the WE. - Time Spent With Patient Time Spent With Patient: 15" ICD10 Worksheet Patient Problems: Problems Problem Status Onset Bipolar 1 disorder, depressed, severe Acute
[2018-04-22] MEDS: QUEtiapine FUMARATE 50 MG TAB PO PRN (16:51)
[2018-04-22] MEDS: PRAZOSIN HCL 5 MG CAP PO SCH (20:28)
[2018-04-22] MEDS: QUEtiapine FUMARATE 200 MG TAB PO SCH (20:28)
[2018-04-23] MEDS: PARoxetine HCL 20 MG TAB PO SCH (08:48)
[2018-04-23] MEDS: SENNOSIDES/DOCUSATE SODIUM TAB PO SCH ×2 (08:48→20:16)
[2018-04-23] MEDS: LEVOTHYROXINE 112 MCG TAB PO SCH (08:48)
[2018-04-23] MEDS: HYDROCODONE/APAP 5/325 TAB PO PRN ×3 (09:05→22:30)
--- NOTE | 2018-04-23 12:04 | ASMTCMCOM ---
CM Note CM Note Notes: CC checked in with ct. He presented as somewhat more animated and was willing to engage in conversation. He said that he was under the impression that he will be discharged today. He reported that he was disappointed when Dr. Quinonez did not mention it on their meeting today. He said that he feels ready for discharge. Date Signed: 04/23/2018 12:03 PM Electronically Signed By:Sarah Smith
[2018-04-23] MEDS: QUEtiapine FUMARATE 200 MG TAB PO SCH (20:16)
[2018-04-23] MEDS: PRAZOSIN HCL 5 MG CAP PO SCH (20:16)
--- NOTE | 2018-04-23 20:41 | SOAPPROG ---
CAREN Progress Note Assessment/Plan: Assessment: Plan: 04/12/18 15:03 Cognition: current presentation is unclear. He appears at some level to be delirious. Vital signs are stable and there is no hallucinosis. It is possible that he is drinking more than he has let on and is in some type of protracted, low-level withdrawal. If so, there is also a possibility of WK syndrome (unlikely). The pattern of cognitive dysfunction is more similar to delirium than it is to that caused by long-term ECT given on a 7-10 day interval. Will start lorazepam and thiamine, d/c lithium as it has not been particularly helpful and may be worsening cognition/delirium and tremor, hold on SQL at 600mg for now, consider addition of memantine and send thyroid panel, Vitamin D, Vitamin B12 and CDTA (send out.) 04/15/18 15:23 Doing better overall. Will CCM with following adjustments: decrease Paxil to 20mg, decrease prazosin to 8mg (on the way lower), decrease scheduled HS SQL to 600mg and add 50mg PRN dose. Await labs. 04/17/18 14:39 No change today. Cognitive issues and TD unchanged. Sleep and behaviors stable despite med reductions. CCM, though decrease Paxil to 20mg to decrease influence on tremors and mood instability. 04/17/18 14:50 Improved today. Clearly more attentive. Unclear whether sleep has changed. He tends to overreport nightmares. Will continue med tapers with decrease of prazosin to 6mg. Will monitor sleep. Will d/c scheduled lorazepam as well and restart PRN. 04/18/18 16:29 Continued gradual improvement. CCM. 04/19/18 14:58 Continued difficult course. Overall improved, but remains agitated and confused. Will stay the current course for now. Want to deemphasize benzo's in general and work on helping patient focus or reorient when he is feeling frustrated or agitated. 04/22/18 14:35 Cognition: much improved overall. Mood: stable despite medication tapers. TD: Much improved. 04/24/18 11:09 Cognition: continued improvement, especially in an interpersonal context. Short term and working memories remains very poor. Will continue taper of benzo 's. Mood: Perhaps improved. Less generalized anxiety. Continue paroxetine 10mg for now. Consider d/c prior to d/c. TD: Continued improvement. CCM. Subjective: Pt seen, discussed with staff. Up in milieu, interactive. Able to complete most sentences today for the first time. I reviewed with him the current treatment plan including further decrease of the prazosin, continuing paroxetine at 10mg for now, and discontinuation of PRN's. I indicated that we will have a family meeting with his tomorrow or the next day and he is in agreement with this. An hour after this conversation, he accosted the RN, agitated, stating I had told him he was going home today and that his is coming for a family meeting at noon. RN called and clarified this with me and then tried to explain to pt, but he reportedly remained agitated and upset for the rest of the day. did visit at noon and was unable to calm him either. Objective: Vital Signs Temp Pulse Resp BP Pulse Ox 36.7 C 98 20 114/72 94 04/23/18 06:00 04/23/18 06:00 04/23/18 06:00 04/23/18 06:00 04/23/18 06:00 MSE: Marginally groomed, coop. Affect is restricted, stable. Notably improved abnl movements today. Minimal buccal-oral movements, no teeth grinding. Mood is "a little better." TP is linear for brief periods, less blocking or derailment. TC reveals no mention of paranoid themes for the first time. - Time Spent With Patient Time Spent With Patient: 25" ICD10 Worksheet Patient Problems: Problems Problem Status Onset Bipolar 1 disorder, depressed, severe Acute
[2018-04-24] MEDS: MELATONIN 3 MG TAB PO PRN ×2 (00:37→20:13)
[2018-04-24] MEDS: LORazepam 0.5 MG TAB PO PRN ×2 (00:37→13:11)
[2018-04-24] MEDS: LEVOTHYROXINE 112 MCG TAB PO SCH (08:41)
[2018-04-24] MEDS: PARoxetine HCL 20 MG TAB PO SCH (08:41)
[2018-04-24] MEDS: SENNOSIDES/DOCUSATE SODIUM TAB PO SCH ×2 (08:41→20:13)
[2018-04-24] MEDS: HYDROCODONE/APAP 5/325 TAB PO PRN ×3 (08:57→18:34)
--- NOTE | 2018-04-24 11:20 | SOAPPROG ---
CAREN Progress Note Assessment/Plan: Assessment: Plan: 04/12/18 15:03 Cognition: current presentation is unclear. He appears at some level to be delirious. Vital signs are stable and there is no hallucinosis. It is possible that he is drinking more than he has let on and is in some type of protracted, low-level withdrawal. If so, there is also a possibility of WK syndrome (unlikely). The pattern of cognitive dysfunction is more similar to delirium than it is to that caused by long-term ECT given on a 7-10 day interval. Will start lorazepam and thiamine, d/c lithium as it has not been particularly helpful and may be worsening cognition/delirium and tremor, hold on SQL at 600mg for now, consider addition of memantine and send thyroid panel, Vitamin D, Vitamin B12 and CDTA (send out.) 04/15/18 15:23 Doing better overall. Will CCM with following adjustments: decrease Paxil to 20mg, decrease prazosin to 8mg (on the way lower), decrease scheduled HS SQL to 600mg and add 50mg PRN dose. Await labs. 04/17/18 14:39 No change today. Cognitive issues and TD unchanged. Sleep and behaviors stable despite med reductions. CCM, though decrease Paxil to 20mg to decrease influence on tremors and mood instability. 04/17/18 14:50 Improved today. Clearly more attentive. Unclear whether sleep has changed. He tends to overreport nightmares. Will continue med tapers with decrease of prazosin to 6mg. Will monitor sleep. Will d/c scheduled lorazepam as well and restart PRN. 04/18/18 16:29 Continued gradual improvement. CCM. 04/19/18 14:58 Continued difficult course. Overall improved, but remains agitated and confused. Will stay the current course for now. Want to deemphasize benzo's in general and work on helping patient focus or reorient when he is feeling frustrated or agitated. 04/22/18 14:35 Cognition: much improved overall. Mood: stable despite medication tapers. TD: Much improved. 04/24/18 11:09 Cognition: continued improvement, especially in an interpersonal context. Short term and working memories remains very poor. Will continue taper of benzo 's. Mood: Perhaps improved. Less generalized anxiety. Continue paroxetine 10mg for now. Consider d/c prior to d/c. TD: Continued improvement. CCM. 04/24/18 11:21 Cognition: Continued improvement though worse today. CCM. Mood: More anxious today. Sleep worse last night. CCM. TD: No change. Subjective: Pt seen, discussed with staff, interviewed in Treatment Team meeting. He reports sleeping less well last night after decreasing prazosin to 5mg. He states he was "up and down" waking several times due to "my mind spinning." Today he is more anxious, distracted. Able to interact appropriately with Treatment Team, though struggles to remember plan. Reviewed again the over plan of care including criteria for d/c: primarily eating and sleeping adequately, adequate cognition to provide ability to live on his own and attend adequately to ADL's, no SI/HI/. Objective: Vital Signs Temp Pulse Resp BP Pulse Ox 36.7 C 98 20 114/72 94 04/23/18 06:00 04/23/18 06:00 04/23/18 06:00 04/23/18 06:00 04/23/18 06:00 MSE: Marginally groomed, interactive. Appears more anxious, eyes downcast, not wearing glasses, closed body posture. Affect is restricted, anxious. Mood is "not too good." TP is abbreviated, though able to give appropriate short answers to questions. TC reveals no mention of paranoia. - Time Spent With Patient Time Spent With Patient: 25" ICD10 Worksheet Patient Problems: Problems Problem Status Onset Bipolar 1 disorder, depressed, severe Acute
--- NOTE | 2018-04-24 11:28 | ASMTCMCOM ---
CM Note CM Note Notes: CC confirmed with , a family meeting tomorrow at 11:30am. Notified provider Date Signed: 04/24/2018 11:28 AM Electronically Signed By:Cuate Ocampo
[2018-04-24] MEDS: PRAZOSIN HCL 5 MG CAP PO SCH (20:13)
[2018-04-24] MEDS: QUEtiapine FUMARATE 200 MG TAB PO SCH (20:13)
[2018-04-25] MEDS: QUEtiapine FUMARATE 50 MG TAB PO PRN (04:22)
[2018-04-25] MEDS: LORazepam 0.5 MG TAB PO PRN ×3 (04:22→15:09)
[2018-04-25] MEDS: HYDROCODONE/APAP 5/325 TAB PO PRN ×2 (08:36→15:08)
[2018-04-25] MEDS: LEVOTHYROXINE 112 MCG TAB PO SCH (08:37)
[2018-04-25] MEDS: PARoxetine HCL 20 MG TAB PO SCH (08:37)
[2018-04-25] MEDS: SENNOSIDES/DOCUSATE SODIUM TAB PO SCH ×2 (08:38→20:34)
--- NOTE | 2018-04-25 17:11 | SOAPPROG ---
CAREN Progress Note Assessment/Plan: Assessment: Plan: 04/12/18 15:03 Cognition: current presentation is unclear. He appears at some level to be delirious. Vital signs are stable and there is no hallucinosis. It is possible that he is drinking more than he has let on and is in some type of protracted, low-level withdrawal. If so, there is also a possibility of WK syndrome (unlikely). The pattern of cognitive dysfunction is more similar to delirium than it is to that caused by long-term ECT given on a 7-10 day interval. Will start lorazepam and thiamine, d/c lithium as it has not been particularly helpful and may be worsening cognition/delirium and tremor, hold on SQL at 600mg for now, consider addition of memantine and send thyroid panel, Vitamin D, Vitamin B12 and CDTA (send out.) 04/15/18 15:23 Doing better overall. Will CCM with following adjustments: decrease Paxil to 20mg, decrease prazosin to 8mg (on the way lower), decrease scheduled HS SQL to 600mg and add 50mg PRN dose. Await labs. 04/17/18 14:39 No change today. Cognitive issues and TD unchanged. Sleep and behaviors stable despite med reductions. CCM, though decrease Paxil to 20mg to decrease influence on tremors and mood instability. 04/17/18 14:50 Improved today. Clearly more attentive. Unclear whether sleep has changed. He tends to overreport nightmares. Will continue med tapers with decrease of prazosin to 6mg. Will monitor sleep. Will d/c scheduled lorazepam as well and restart PRN. 04/18/18 16:29 Continued gradual improvement. CCM. 04/19/18 14:58 Continued difficult course. Overall improved, but remains agitated and confused. Will stay the current course for now. Want to deemphasize benzo's in general and work on helping patient focus or reorient when he is feeling frustrated or agitated. 04/22/18 14:35 Cognition: much improved overall. Mood: stable despite medication tapers. TD: Much improved. 04/24/18 11:09 Cognition: continued improvement, especially in an interpersonal context. Short term and working memories remains very poor. Will continue taper of benzo 's. Mood: Perhaps improved. Less generalized anxiety. Continue paroxetine 10mg for now. Consider d/c prior to d/c. TD: Continued improvement. CCM. 04/24/18 11:21 Cognition: Continued improvement though worse today. CCM. Mood: More anxious today. Sleep worse last night. CCM. TD: No change. 04/25/18 17:13 Cognition: Continued gradual improvement. Mood: Higher anxiety level persists today in setting of family meeting and impending d/c. Will CCM, monitor. TD: Slightly increased with increased anxiety. CCM. Subjective: Pt seen, discussed with staff. Interviewed alone and in family meeting with , CC, pt and myself present. He continues to display gradual improvement in cognition, mood, anxiety and abnl movements. Discussed the treatment and d/ c plans. He is agreeable to IOP or PHP stepdown after d/c. has been unable to find a program that will take Medicare. CC will assist with this. Objective: Vital Signs Temp Pulse Resp BP Pulse Ox 36.7 C 90 20 119/76 99 04/23/18 06:00 04/25/18 06:00 04/25/18 06:00 04/25/18 06:00 04/25/18 06:00 MSE: Moderately anxious, notably moreso than recently observed. Speech is spontaneous, low in tone, nl rate, fluent, no stopping. Eye contact is poor, even with redirection from . Affect is restricted, stable, approp. Mood is "pretty good." TP is linear with no blocking or derailment noted. TC reveals no overt psychosis. Denies SI. - Time Spent With Patient Time Spent With Patient: 45" ICD10 Worksheet Patient Problems: Problems Problem Status Onset Bipolar 1 disorder, depressed, severe Acute
[2018-04-25] MEDS: IBUPROFEN 600 MG TAB PO PRN (17:40)
[2018-04-25] MEDS: MELATONIN 3 MG TAB PO PRN (20:34)
[2018-04-25] MEDS: PRAZOSIN HCL 5 MG CAP PO SCH (20:34)
[2018-04-25] MEDS: QUEtiapine FUMARATE 200 MG TAB PO SCH (20:34)
[2018-04-26 06:45] VITALS: BP 141/79
[2018-04-26] MEDS: PARoxetine HCL 20 MG TAB PO SCH (09:12)
[2018-04-26] MEDS: LEVOTHYROXINE 112 MCG TAB PO SCH (09:12)
[2018-04-26] MEDS: SENNOSIDES/DOCUSATE SODIUM TAB PO SCH (09:12)
== END 2018-04-26 17:23 | disposition home or self-care (01) | DRG 885 ==
LOC: BBEH 02:45
PROVIDERS: ADMIT Psychiatry & Neurology Psychiatry; ATTEND Psychiatry & Neurology Psychiatry
DX: F31.5 Bipolar disorder, current episode depressed, severe, with psychotic features (principal); G47.33 Obstructive sleep apnea (adult) (pediatric); G89.29 Other chronic pain; G24.01 Drug induced subacute dyskinesia; R51 Headache; Z72.89 Other problems related to lifestyle; Z87.820 Personal history of traumatic brain injury
CPT/HCPCS: 82607-90; 82652-90; 84480-90; J3411